=== PATIENT | female | born 1940 | race Caucasian/White ===

== ENCOUNTER → 2018-03-31 12:25 | Outpatient (CLI) | payer MEDICARE, OTHER, SELFPAY ==
--- NOTE | 2018-03-31 | DI.MG.S_ITS ---
UNILATERAL RIGHT DIGITAL DIAGNOSTIC MAMMOGRAM 3D/2D WITH ADDITIONAL VIEWS: 03/31/2018 CLINICAL: Additional evaluation requested from prior study. Comparison is made to exams dated: 03/03/2018 mammogram, 02/04/2017 mammogram, and 01/31/2016 mammogram - [facility]. The tissue of the right breast is heterogeneously dense. This may lower the sensitivity of mammography. Prior mammographic finding is no longer seen in the right breast. There is an 8 mm round low density mass with a circumscribed margin in the right breast at 11 o'clock middle depth. No other significant masses or calcifications are seen in the breast. IMPRESSION: INCOMPLETE: NEEDS ADDITIONAL IMAGING EVALUATION The 8 mm round low density mass in the right breast is indeterminate. An ultrasound is recommended. This exam was interpreted at Station ID: [id number]. NOTE: For mammograms, a report in lay terms will be sent to the patient. Approximately 15% of breast malignancies will not be visualized mammographically. In the management of a palpable breast mass, a negative mammogram must not discourage biopsy of a clinically suspicious lesion. Electronically Signed By: Olivier garcia/maddison:03/31/2018 13:32:16 ACR BI-RADS Category 0: Incomplete 3340F
--- NOTE | 2018-03-31 | DI.US.S_ITS ---
ULTRASOUND OF RIGHT BREAST: 03/31/2018 CLINICAL: Patient returns today to evaluate a focal asymmetry in the right breast. Comparison is made to exams dated: 03/03/2018 mammogram, 02/04/2017 mammogram, 01/31/2016 ultrasound, 01/31/2016 mammogram, and 01/22/2016 mammogram - [facility]. Color flow ultrasound of the right breast was performed. Gloria scale images of the real-time examination were reviewed. There is an benign 8 mm simple cyst in the right breast at 11 o'clock middle depth. This correlates with mammography findings. IMPRESSION: BENIGN There is no sonographic evidence of malignancy. The 8 mm simple cyst in the right breast is benign. A 1 year screening mammogram is recommended. This exam was interpreted at Station ID: [id number]. Electronically Signed By: Olivier garcia/maddison:03/31/2018 13:33:01 letter sent: Normal Exam Ultrasound BI-RADS: 2 Benign
== END ==
PROVIDERS: Visit Provider Family Medicine
DX: R92.8 Other abnormal and inconclusive findings on diagnostic imaging of breast (principal)
CPT/HCPCS: 76642; 77065; G0279

== ENCOUNTER → 2018-04-07 10:11 | Outpatient (CLI) | payer MEDICARE, OTHER, SELFPAY ==
--- NOTE | 2018-04-07 10:59 | DIET.PN ---
Pt referred for mild gastroparesis, requesting information on nutritional management of symptoms. Pt also c/o chronic GERD which actually seemed to be the more concerning issue to her. Assessment Med Dx of gastroparesis made from results of gastric emptying study, which showed 21% gastric contents remaining after 4 hours had elapsed. Med Hx: GERD. Pt reports having an endoscopy in 2015 which showed no pathological changes to esophageal tissue. GI would like to repeat in near future. From record: HLD, basal cell cancer, PSVT. NFPE: Pt appears well nourished, with no report of unintentional weight loss or decreased food intake. Usual diet: Pt follows a varied and nutrient dense diet - reports consuming yogurt, cottage cheese, fruit and vegetables, lean proteins, and whole grains regularly. Diagnosis Altered GI function RT gastroparesis, GERD AEB medical hx, pt report of symptoms including early satiety, need for small meals, belching and increasing fullness as day progresses; results of gastric emptying study. Intervention Pt was originally directed to cut out ALL carbohydrates, all fat, and all fiber by GI, who subsequently recommended chicken when she asked what was left to eat. We were able to provide her with more inclusive dietary recommendations that will allow for a more diverse, balanced diet with greater nutrient density. Recommendations included - mechanically alter fruits & vegetables to break down some fiber prior to consumption, using moist heat or longer cooking methods - cooking proteins with slow, moist cooking methods as opposed to rapid, dry cooking methods - reducing fat intake - liquid fats tend to be easier / quicker to digest than solid fats - eat mostly solid foods in the morning, with transition to predominantly liquid calories as the day progresses, as liquid calories do not appear to be as affected by delayed gastric emptying as do solid foods. Pt has done smoothies in the past but didn't appear too enthusiastic about having a smoothie for dinner when her was eating a regular dinner. She may find relief from previous recommendations and not have to take this somewhat more drastic step to manage symptoms, but wanted to provide it as an option. GERD was not mentioned until well into our discussion. Briefly covered foods that can exacerbate GERD including caffeine, acidic foods, and alcohol. Pt reports having the occasional cocktail with her but often has to give it to him to finish, says, I can do without those easily! Pt has eliminated chocolate and caffeinated coffee; however, discussed fact that even decaf coffee can be quite acidic and so that may also provide relief if it is completely eliminated. Monitoring Pt reports being on a PPI for an extended period of time. This, combined with frequency of Fe deficiency in GP patients in general, suggests that checking pt's Fe (ferritin) levels may be advisable. In addition, B12 and Vit D are also common vitamin / mineral deficiencies in GP and so those two tests are also recommended. Ariana Lopez, buying intern Radha Harrison, MICHELN
== END ==
PROVIDERS: Visit Provider Internal Medicine Gastroenterology
DX: K31.84 Gastroparesis (principal); K21.9 Gastro-esophageal reflux disease without esophagitis
CPT/HCPCS: 97802

== ENCOUNTER → 2019-04-08 11:28 | Outpatient (CLI) | payer MEDICARE, OTHER, SELFPAY ==
--- NOTE | 2019-04-08 | DI.MG.S_ITS ---
BILATERAL DIGITAL SCREENING MAMMOGRAM 3D/2D WITH CAD: 04/08/2019 CLINICAL: Routine screening. Family history of breast cancer. Comparison is made to exams dated: 03/31/2018 mammogram, 03/03/2018 mammogram, 02/04/2017 mammogram, 01/31/2016 mammogram, 01/22/2016 mammogram, and 01/17/2015 mammogram - [facility]. The tissue of both breasts is heterogeneously dense. This may lower the sensitivity of mammography. Current study was also evaluated with a Computer Aided Detection (CAD) system. There is a mole marker on the right breast. There are mole markers on the left breast. No significant masses, calcifications, or other findings are seen in either breast. There has been no significant interval change. IMPRESSION: NEGATIVE There is no mammographic evidence of malignancy. A 1 year screening mammogram is recommended. This exam was interpreted at Station ID: [id number]. NOTE: For mammograms, a report in lay terms will be sent to the patient. Approximately 15% of breast malignancies will not be visualized mammographically. In the management of a palpable breast mass, a negative mammogram must not discourage biopsy of a clinically suspicious lesion. Electronically Signed By: Praveen morgan/maddison:04/08/2019 18:04:59 letter sent: Normal Exam ACR BI-RADS Category 1: Negative 3341F
== END ==
PROVIDERS: PCP Family Medicine; Visit Provider Family Medicine
DX: Z12.31 Encounter for screening mammogram for malignant neoplasm of breast (principal); Z80.3 Family history of malignant neoplasm of breast
CPT/HCPCS: 77063; 77067

== ENCOUNTER → 2019-04-08 13:08 | Outpatient (CLI) | payer MEDICARE, OTHER, SELFPAY ==
--- NOTE | 2019-04-08 13:11 | DI.RAD.S_ITS ---
PROCEDURE: XR CHEST 2V INDICATIONS: Chronic cough TECHNIQUE: 2 views of the chest were acquired. COMPARISON: None. FINDINGS: Surgical changes and devices: None. Lungs and pleura: Lungs are clear. No pleural effusions or pneumothorax. Mediastinum: Mediastinal contours are normal. Heart size is normal. Bones and chest wall: No suspicious bony abnormalities. Soft tissues appear unremarkable. IMPRESSION: No acute disease Dictated by: Torres Saenz M.D. on 04/08/2019 at 13:37 Approved by: Torres Saenz M.D. on 04/08/2019 at 13:37
== END ==
PROVIDERS: PCP Family Medicine; Visit Provider Physician Assistant
DX: R05 Cough (principal)
CPT/HCPCS: 71046

== ENCOUNTER → 2019-11-18 18:48 | Outpatient (CLI) | payer MEDICARE, OTHER, SELFPAY ==
--- NOTE | 2019-11-18 18:53 | DI.MRI.S_ITS ---
PROCEDURE: MR KNEE LT WO CON INDICATIONS: UNSPECIFIED INTERNAL DERANGEMENT OF LEFT KNEE TECHNIQUE: Noncontrast sagittal PD fast spin echo and T2 fast spin echo with fat saturation, sagittal 3-D FLASH with fat saturation; coronal T1 spin echo and PD fast spin echo with fat saturation, and axial PD fast spin echo with fat saturation through the knee. COMPARISON: None. FINDINGS: Image quality: Excellent. Menisci: There is no evidence of focal medial meniscal tear. Complex tear involving posterior horn of lateral meniscus is seen extending to both superior and inferior articulating surfaces. The meniscal root ligaments appear intact. Cruciate ligaments: The anterior and posterior cruciate ligaments appear intact. Medial structures: Low to moderate grade MCL sprain/partial thickness tear is seen. The posterior oblique ligament, semimembranosus tendon insertions, oblique popliteal ligament, and meniscocapsular junction appear intact. Visualized portions of the pes anserinus tendons appear normal. No abnormal bursal fluid. Lateral structures: The lateral collateral ligament, long and short heads of the biceps femoris tendon appear intact. The popliteus tendon appears normal; the popliteofibular ligament appears intact. The posterosuperior and anteroinferior popliteomeniscal fascicles appear intact. The arcuate and fabellofibular ligaments appear intact, on either side of the lateral inferior geniculate artery. Iliotibial band appears normal. Anterior structures: The quadriceps and patellar tendons appear intact. Patellar alignment is normal. No femoral trochlear dysplasia or ventral trochlear prominence. No edema in the infrapatellar fat pad. Bones and cartilage: 3 mm fluid signal area involving weight-bearing portion of anterior medial femoral condyle with mild surrounding edema is seen. Mild to moderate tricompartmental osteoarthritis and chondromalacia is seen more prominent in the medial femoral tibial compartment. Moderate grade chondromalacia along the lateral facet of patella cartilage is also seen. Joint space: There is small to moderate amount of joint fluid. 2.2 x 1.3 x 3.4 cm popliteal cyst is seen. Normal appearing synovial plicae are incidentally noted. IMPRESSION: 1. Complex tear involving posterior horn of lateral meniscus extending to both superior and inferior articulating surfaces. No evidence of focal medial meniscal tear. 2. Cruciate ligaments are intact. 3. Mild to moderate tricompartmental osteoarthritis and chondromalacia. Suggestion of small osteochondral lesion involving weight-bearing portion of medial femoral condyle anterior aspect and measures 3 mm in size. 4. Moderate chondromalacia involving lateral facet of patella cartilage. 5. Small to moderate amount of joint fluid in popliteal cyst as above. No gross intra-articular loose body. Dictated by: Chavo Bajwa M.D. on 11/21/2019 at 11:15 Approved by: Chavo Bajwa M.D. on 11/21/2019 at 11:19
== END ==
PROVIDERS: PCP Family Medicine; Visit Provider Orthopaedic Surgery
DX: S83.272A Complex tear of lateral meniscus, current injury, left knee, initial encounter (principal); S83.412A Sprain of medial collateral ligament of left knee, initial encounter; M17.12 Unilateral primary osteoarthritis, left knee; M22.42 Chondromalacia patellae, left knee; M71.22 Synovial cyst of popliteal space [Baker], left knee
CPT/HCPCS: 73721

== ENCOUNTER → 2020-04-26 10:09 | Outpatient (CLI) | payer MEDICARE, OTHER, SELFPAY ==
--- NOTE | 2020-04-26 10:12 | DI.MG.S_ITS ---
BILATERAL DIGITAL SCREENING MAMMOGRAM 3D/2D WITH CAD: 04/26/2020 CLINICAL: Routine screening. Comparison is made to exams dated: 04/08/2019 mammogram, 03/31/2018 mammogram, 03/03/2018 mammogram, and 02/04/2017 mammogram - [facility]. The tissue of both breasts is heterogeneously dense. This may lower the sensitivity of mammography. Current study was also evaluated with a Computer Aided Detection (CAD) system. There is a mole marker on the right breast. There are mole markers on the left breast. No significant masses, calcifications, or other findings are seen in either breast. There has been no significant interval change. IMPRESSION: NEGATIVE There is no mammographic evidence of malignancy. A 1 year screening mammogram is recommended. This exam was interpreted at Station ID: [id number]. NOTE: For mammograms, a report in lay terms will be sent to the patient. Approximately 15% of breast malignancies will not be visualized mammographically. In the management of a palpable breast mass, a negative mammogram must not discourage biopsy of a clinically suspicious lesion. Electronically Signed By: Linda baker/maddison:04/26/2020 11:43:22 letter sent: Normal Exam ACR BI-RADS Category 1: Negative 3341F
== END ==
PROVIDERS: PCP Family Medicine; Referring Provider Family Medicine; Visit Provider Family Medicine
DX: Z12.31 Encounter for screening mammogram for malignant neoplasm of breast (principal)
CPT/HCPCS: 77063; 77067

== ENCOUNTER 2020-09-17 11:30 | Outpatient (RCR) | payer MEDICARE, OTHER, SELFPAY ==
--- NOTE | 2020-08-24 15:42 | ST.OPIE ---
Visit Care Team Role Provider Type Jenise Hernandez MD Primary Care Provider Non-Staff Specialty: Family Practice Address: [address] [place], [address] Email: Kelby Simpson MD Attending Provider Physician Referring Provider Specialty: Ear, Nose, Throat Address: [address] [place] [address], [address] Email: [email or web address] Speech-Language Pathology Initial Evaluation INCOME TAX ADJUSTER Voice Resonance Evaluation Start: 08/24/20 13:01 Freq: Status: Active Protocol: Document 08/24/20 13:01 LNK (Rec: 08/24/20 14:41 LNK [email or web address]) Voice and Resonance Assessment Session Time Visit Start Time 13:30 Visit Stop Time 14:15 Total Visit Minutes 45 Visit Information Visit Number 1 Plan of Care Dates 08/24/20-11/24/20 Next Note Type Next Note Type Treatment Note Referral Referring Physician Dr. Simpson, ENT Setting Setting Outpatient Care Patient History General Information Pt is a 79 year old female here for evaluation and treatment of hoarseness, throat-claering and voice change following intubation for surgery in July 2020. Pt has a long history of GERD. She is not using PPIs, but rather is on H2 leila only. Pt reports multiple episodes of heartburn daily and hoarseness upon waking up. Dr. Simpson used flexible laryngoscope to evaluate pt's larynx. Dr. Simpson reported all structures to be WNL with normally mobile true vocal folds. Occupational Status Occupation Status Retired Previous Therapy Previous Speech-Language Therapy No - Laryngeal Performance S/Z Ratio S/Z Ratio .51 Functional for Speech Yes Reduced Laryngeal Function Relative to No Respiration Voice Handicap Index Function Subtotal 7 Physical Subtotal 2 Emotional Subtotal 2 Severity Mild (0-30) CAPE-V Overall Severity 31 Roughness 30 Breathiness 9 Strain 5 Pitch 19 Loudness 5 Normal Resonance? Yes Additional Features Glottal High Maximum Phonation Time MPT Norms: Women (15-25) Men (25-35) Loudness (50-60 dB); Speaking Rate: Oral Reading of Sentences (190 Words Per Minute); Oral Reading of Paragraphs (160-170 WPM); Speaking Rate in Conversation (150-250 WPM) Maximum Phonation Time 14.9 Maximum Phonation Time Adequate for Speech Jitter/Shimmer Norms: Jitter (Less than or equal to 1.040% - Frequency) Norms: Shimmer (Less than or equal to 3.810% - Amplitude) Jitter 4.9 Shimmer 7.1 Pitch [place] Pitch [place] WFL Pitch [place] Comments Singing pitch range = 191Hz - 527Hz Breath Support Breath Support Sustained Phonation WFL Comment Breath Support Conversation Comment WFL Speaks on Room Air Yes Voice Pitch Range Norms: Women (100-300 Hz) Men (70-250 Hz) Fundamental Frequency Norms: Women (Mean: 225 Hz; Range: 155-334 Hz) Men ( Mean: 128 Hz; Range: 85-196 Hz) Voice Pitch Normal Voice Loudness Normal Voice Phonatory-based Quality Glottal High Fundamental Frequency 202Hz - 212Hz Paradoxical Vocal Fold Movement No Indications Resonance Nasal Resonance Normal Therapeutic Techniques Other Tactics Decrease amount of glottal high Vocal adduction exercises Decrease throat-clearing Findings Findings Mild Impairment Voice/Resonance Assessment Assessment 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 Pt has been reported to frequently clear her throat. Today during the assessment no obvious throat-clearing was observed. Pt reports history of GERD. Pt reports that she feels she can manage with H2 blockers. Is willing to try PPIs again if necessary. Discussed the relationship between reflux and vocal changes and throat-clearing. Also discussed the possibility of presbylaryngis. Assessment of pt's voice indicated that all parameters were WNL with the exception of Jitter and Shimmer, indicating a higher than normal variability in vocal fold frequency and amplitude during vibration. The Shimmer and Jitter values could be explained by reflux induced irritation or presbylaryngis. This was explained to the pt who indicated that she understood. Voice therapy is recommended targeting vocal adduction exercises as well as continuing to monitor her throat clearing frequency. She noted that Dr. Simpson suggested she swallow instead of clearing her throat. The pt reported that she felt that suggestion to be very helpful and effective. Prognosis Rehabilitation Potential Excellent - Recommendations Treatment Recommended Yes Treatment Frequency/Duration 1x every 2 weeks for 4-6 weeks Ordinary Seaman Goals Pt's voice quality will return to a normal level Pt will report a reduction of throat clearing based on family feedback Patient/Caregiver Education Patient/Family Education Described results of evaluation,Patient Understanding
--- NOTE | 2020-09-17 12:23 | ST.OPTN ---
Visit Care Team Role Provider Type Jenise Hernandez MD Primary Care Provider Non-Staff Address: [facility] [place] [address] [place] [place], [address] Kelby Simpson MD Attending Provider Physician Referring Provider Address: [address] [place] [address], [address] [employer] Treatment Note [employer] Treatment Note Start: 08/24/20 13:01 Freq: Status: Active Protocol: Document 09/17/20 11:25 LNK (Rec: 09/17/20 12:23 LNK [email or web address]) Speech Pathology Treatment Note Session Time Visit Start Time 11:30 Visit Stop Time 12:10 Total Visit Minutes 40 Visit Information Visit Number 2 Plan of Care Dates 08/24/20-11/24/20 Setting Treatment Setting Outpatient Care Visit Type Note Type Treatment Note Next Note Type Next Note Type Discharge Summary General Information General Information Pt is a 79 year old female here for evaluation and treatment of hoarseness, throat-clearing and voice change following intubation for surgery in July 2020. Pt has a long history of GERD. She is not using PPIs, but rather is on H2 leila only. Pt reports multiple episodes of heartburn daily and hoarseness upon waking up. Subjective Identification Type Name Identification Reconciled With Intake Sheet Chief Complaint(s) Voice Rehab Expectation/Goals: Patient Goals Improved vocal quality and decreased throat-clearing Patient Knowledge/Awareness of [employer] Role Excellent in Treatment Objective Short Term Goals Decrease amount of glottal raymond to <20% based on clinical judgment Vocal adduction exercises daily to increase medial compression of vocal folds improving vocal quality per pt report Decrease throat-clearing using swallow instead as reported by pt Snf Goals Pt's voice quality will return to a normal level Pt will report a reduction of throat clearing based on family feedback Treatment Activities Reviewed adduction exercises with pt. She is doing the exercises daily. She feels her voice is the same as it was last session (). She also reported that the frequency of throat-clearing has been reduced. Measurement of jitter and shimmer indicated that there has been improvement in jitter at 1.64. Shimmer, however, has not changed at 7.29. Vocal quality has not changes as well. During a 35 minute session, the pt did not clear her throat. Assessment Patient Response to Treatment Good Impairments Identified Vocal Quality Progress Towards Goals Good Progress Assessment of Overall Progress Unchanged Assessment of Improvement Overall, the pt has shown improvement in the frequency of throat-clearing. In a 35 minute session, she did not clear her throat at all. Additionally, the pt demonstrated improvement in vocal jitter but not in shimmer or overall vocal quality. Pt feels that she is able to maintain the adduction exercises on her own. She will also continue to follow Dr. Simpson' suggestion to swallow instead of clearing her throat. She will contact this clinic or Dr. Simpson, if she needs notes any change in her voice. Reviewed with Patient Home Exercise Program Patient/Caregiver Understanding Excellent Plan Amount of Therapy Recommended No Further Therapy Frequency of Treatment No Further Therapy Provided Patient/Caregiver Instruction Home Exercise Program, Questions/Concerns Therapy Recommendations Discharge to Home Exercise Program
--- NOTE | 2020-09-17 12:26 | ST.OPDS ---
Visit Care Team Role Provider Type Jenise Hernandez MD Primary Care Provider Non-Staff Address: [facility] [place] [address] [place], [address] Kelby Simpson MD Attending Provider Physician Referring Provider Address: [address] [place] [address], [address] [employer] OPERATOR Treatment Note [employer] OPERATOR Treatment Note Start: 08/24/20 13:01 Freq: Status: Active Protocol: Document 09/17/20 11:25 LNK (Rec: 09/17/20 12:23 LNK [email or web address]) Speech Pathology Treatment Note Session Time Visit Start Time 11:30 Visit Stop Time 12:10 Total Visit Minutes 40 Visit Information Visit Number 2 Plan of Care Dates 08/24/20-11/24/20 Setting Treatment Setting Outpatient Care Visit Type Note Type Treatment Note Next Note Type Next Note Type Discharge Summary General Information General Information Pt is a 79 year old female here for evaluation and treatment of hoarseness, throat-clearing and voice change following intubation for surgery in July 2020. Pt has a long history of GERD. She is not using PPIs, but rather is on H2 leila only. Pt reports multiple episodes of heartburn daily and hoarseness upon waking up. Subjective Identification Type Name Identification Reconciled With Intake Sheet Chief Complaint(s) Voice Rehab Expectation/Goals: Patient Goals Improved vocal quality and decreased throat-clearing Patient Knowledge/Awareness of [employer] OPERATOR Role Excellent in Treatment Objective Short Term Goals Decrease amount of glottal raymond to <20% based on clinical judgment Vocal adduction exercises daily to increase medial compression of vocal folds improving vocal quality per pt report Decrease throat-clearing using swallow instead as reported by pt Halfway Goals Pt's voice quality will return to a normal level Pt will report a reduction of throat clearing based on family feedback Treatment Activities Reviewed adduction exercises with pt. She is doing the exercises daily. She feels her voice is the same as it was last session (). She also reported that the frequency of throat-clearing has been reduced. Measurement of jitter and shimmer indicated that there has been improvement in jitter at 1.64. Shimmer, however, has not changed at 7.29. Vocal quality has not changes as well. During a 35 minute session, the pt did not clear her throat. Assessment Patient Response to Treatment Good Impairments Identified Vocal Quality Progress Towards Goals Good Progress Assessment of Overall Progress Unchanged Assessment of Improvement Overall, the pt has shown improvement in the frequency of throat-clearing. In a 35 minute session, she did not clear her throat at all. Additionally, the pt demonstrated improvement in vocal jitter but not in shimmer or overall vocal quality. Pt feels that sh is able to maintain the adduction exercises on her own. She will also continue to follow Dr. Simpson' suggestion to swallow instead of clearing her throat. She will contact this clinic or Dr. Simpson, if she needs notes any change in her voice. Reviewed with Patient Home Exercise Program Patient/Caregiver Understanding Excellent Plan Amount of Therapy Recommended No Further Therapy Frequency of Treatment No Further Therapy Provided Patient/Caregiver Instruction Home Exercise Program, Questions/Concerns Therapy Recommendations Discharge to Home Exercise Program
== END 2020-11-16 09:26 | disposition home or self-care (01) ==
LOC: SP 11:30
PROVIDERS: PCP Family Medicine; Referring Provider Otolaryngology; Visit Provider Otolaryngology
DX: R49.0 Dysphonia (principal); K21.9 Gastro-esophageal reflux disease without esophagitis
CPT/HCPCS: 92507; 92520; 92524

== ENCOUNTER → 2021-04-29 10:34 | Outpatient (CLI) | payer MEDICARE, OTHER, SELFPAY ==
--- NOTE | 2021-04-29 | DI.MG.S_ITS ---
BILATERAL DIGITAL SCREENING MAMMOGRAM 3D/2D WITH CAD: 04/29/2021 CLINICAL: Routine screening. Family history of breast cancer. Comparison is made to exams dated: 04/26/2020 mammogram, 04/08/2019 mammogram, 03/31/2018 mammogram, and 03/03/2018 mammogram - [facility]. The tissue of both breasts is heterogeneously dense. This may lower the sensitivity of mammography. Current study was also evaluated with a Computer Aided Detection (CAD) system. There is a mole marker on the right breast. There are mole markers on the left breast. No significant masses, calcifications, or other findings are seen in either breast. There has been no significant interval change. IMPRESSION: NEGATIVE There is no mammographic evidence of malignancy. A 1 year screening mammogram is recommended. This exam was interpreted at Station ID: [id number]. NOTE: For mammograms, a report in lay terms will be sent to the patient. Approximately 15% of breast malignancies will not be visualized mammographically. In the management of a palpable breast mass, a negative mammogram must not discourage biopsy of a clinically suspicious lesion. Electronically Signed By: Timoteo Sarmiento M.D., jr/maddison:04/29/2021 12:27:07 letter sent: Normal Exam ACR BI-RADS Category 1: Negative 3341F
== END ==
PROVIDERS: PCP Family Medicine; Referring Provider Family Medicine; Visit Provider Family Medicine
DX: Z12.31 Encounter for screening mammogram for malignant neoplasm of breast (principal); Z80.3 Family history of malignant neoplasm of breast
CPT/HCPCS: 77063; 77067

== ENCOUNTER → 2021-11-08 11:32 | Outpatient (CLI) | payer MEDICARE, OTHER, SELFPAY ==
--- NOTE | 2021-11-08 | DI.MRI.S_ITS ---
PROCEDURE: MR KNEE RT WO CON INDICATIONS: PAIN IN BOTH KNEES UNSPECIFIED CHRONICITY TECHNIQUE: Noncontrast sagittal PD fast spin echo and T2 fast spin echo with fat saturation, sagittal 3-D FLASH with fat saturation; coronal T1 spin echo and PD fast spin echo with fat saturation, and axial PD fast spin echo with fat saturation through the knee. COMPARISON: [facility], MR, MR KNEE LT WO CON, 11/18/2019, 19:04. FINDINGS: Image quality: Excellent. Menisci: Oblique tear involving body and posterior horn junction of medial meniscus extending to inferior articulating surface. Oblique tear is also seen involving anterior horn and body of lateral meniscus extending to superior articulating surface. The meniscal root ligaments appear intact. Cruciate ligaments: The anterior and posterior cruciate ligaments appear intact. Medial structures: Low-grade MCL sprain is seen. The posterior oblique ligament, semimembranosus tendon insertions, oblique popliteal ligament, and meniscocapsular junction appear intact. Visualized portions of the pes anserinus tendons appear normal. No abnormal bursal fluid. Lateral structures: The lateral collateral ligament, long and short heads of the biceps femoris tendon appear intact. The popliteus tendon appears normal; the popliteofibular ligament appears intact. The posterosuperior and anteroinferior popliteomeniscal fascicles appear intact. The arcuate and fabellofibular ligaments appear intact, on either side of the lateral inferior geniculate artery. Iliotibial band appears normal. Anterior structures: The quadriceps and patellar tendons appear intact. Patellar alignment is normal. No femoral trochlear dysplasia or ventral trochlear prominence. No edema in the infrapatellar fat pad. Bones and cartilage: No bone marrow contusions or fractures. 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 Joint space: There is small to moderate amount of joint fluid. A small popliteal cyst is seen measures approximately 2 x 1.6 x 3.6 cm in size.. Normal appearing synovial plicae are incidentally noted. IMPRESSION: 1. Oblique tear involving body and posterior horn junction of medial meniscus extending to inferior articulating surface. Oblique tear also seen involving anterior horn and body of lateral meniscus extending to superior articulating surface. 2. Cruciate ligaments are intact. Low-grade MCL sprain. 3. 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 4. Small joint effusion and popliteal cyst as above. No gross loose bodies. Dictated by: Chavo Bajwa M.D. on 11/08/2021 at 12:51 Approved by: Chavo Bajwa M.D. on 11/08/2021 at 12:55
== END ==
PROVIDERS: PCP Family Medicine; Referring Provider Orthopaedic Surgery; Visit Provider Orthopaedic Surgery
DX: S83.241A Other tear of medial meniscus, current injury, right knee, initial encounter (principal); S83.281A Other tear of lateral meniscus, current injury, right knee, initial encounter; S83.411A Sprain of medial collateral ligament of right knee, initial encounter; M17.11 Unilateral primary osteoarthritis, right knee; M22.41 Chondromalacia patellae, right knee; M25.461 Effusion, right knee; M25.561 Pain in right knee; M25.562 Pain in left knee
CPT/HCPCS: 73721

== ENCOUNTER → 2022-05-01 09:57 | Outpatient (CLI) | payer MEDICARE, OTHER, SELFPAY ==
--- NOTE | 2022-05-01 09:59 | DI.MG.S_ITS ---
BILATERAL DIGITAL SCREENING MAMMOGRAM 3D/2D WITH CAD: 05/01/2022 CLINICAL: Routine screening. Family history of breast cancer. Comparison is made to exams dated: 04/29/2021 mammogram, 04/26/2020 mammogram, and 04/08/2019 mammogram - [facility]. The tissue of both breasts is heterogeneously dense. This may lower the sensitivity of mammography. Current study was also evaluated with a Computer Aided Detection (CAD) system. There is a mole marker on the right breast. There are mole markers on the left breast. No significant masses, calcifications, or other findings are seen in either breast. There has been no significant interval change. IMPRESSION: NEGATIVE There is no mammographic evidence of malignancy. A 1 year screening mammogram is recommended. Based on the Tyrer Cuzick model (a risk assessment model) the patient's lifetime risk is 4.1% and her 10 year risk is 0.0%. According to the ACR, ACS, and NCCN guidelines, an annual breast MRI exam along with mammogram is recommended if the patient's lifetime risk is 20% or greater. This exam was interpreted at Station ID: [id number]. NOTE: For mammograms, a report in lay terms will be sent to the patient. Approximately 15% of breast malignancies will not be visualized mammographically. In the management of a palpable breast mass, a negative mammogram must not discourage biopsy of a clinically suspicious lesion. Electronically Signed By: Estuardo rodriguez/maddison:05/01/2022 15:48:22 letter sent: Normal Exam ACR BI-RADS Category 1: Negative 3341F
== END ==
PROVIDERS: PCP Family Medicine; Referring Provider Family Medicine; Visit Provider Family Medicine
DX: Z12.31 Encounter for screening mammogram for malignant neoplasm of breast (principal); Z80.3 Family history of malignant neoplasm of breast
CPT/HCPCS: 77063; 77067

== ENCOUNTER → 2023-02-18 08:32 | Outpatient (CLI) | payer MEDICARE, SELFPAY ==
[2023-02-18 09:57] LABS: BUN Creatinine Ratio 21.4 (6-22); Blood Urea Nitrogen 18 mg/dL (7-17); Calcium 9.4 mg/dL (8.4-10.2); Carbon Dioxide 27 mmol/L (22-32); Chloride 101 mmol/L (98-107); Estimated Glomerular Filt Rate > 60 mL/min (>60); Glucose 108 mg/dL (80-110); HEMOLYSIS < 15 (0-50); Potassium 4.2 mmol/L (3.4-5.1); Sodium 136 mmol/L (137-145)
== END ==
PROVIDERS: PCP Family Medicine; Referring Provider Nurse Practitioner Family; Visit Provider Nurse Practitioner Family
DX: S61.459A Open bite of unspecified hand, initial encounter (principal); W55.01XA Bitten by cat, initial encounter
CPT/HCPCS: 36415; 80048

== ENCOUNTER 2023-02-19 09:48 | Emergency (ER) | payer MEDICARE, SELFPAY ==
[2023-02-19 09:51] VITALS: BP 175/86; PULSE 98; RESP 15; TEMP 36.7; O2SAT 96; BMI 27.4
--- NOTE | 2023-02-19 11:09 | ED_ITS ---
HPI - Animal Bite General Chief Complaint: Animal Bite Stated Complaint: bit by cat on T-4 swelling getting worse Time Seen by Provider: 02/19/23 11:09 Source: patient Mode of arrival: Ambulatory History of Present Illness HPI narrative: This is an 82-year-old female with history of dyslipidemia who presents with complaint of cat bite to the hand. Patient states bite occurred on 02/16/2023 it is her animal she was doing exercises she uses a bar the CT was playing around with her and was feeling risky. She states there was a small scratch or bite she did not actually notice any bleeding until later. Patient states since then she noticed some swelling and redness and warmth. She went to the walk-in clinic was started on Augmentin on the . She states she is had 5 doses total and they marked the area she states it just started to extend beyond yesterday about a cm beyond. Patient denies fevers or chills. She has some discomfort but has full range of motion. Patient states has not extended up her arm or further beyond were noted here in the department. Patient denies any other symptoms. She states she takes ipratropium daily, estradiol topically, Crestor, calcitonin for osteopenia. No known drug allergies. She states her tetanus was updated on the . No tobacco. Related Data Home Medications Medication Instructions Recorded Confirmed [CALCIUM] 500 mg PO QDAY ##0 12/16/11 02/17/23 [MUTIVITAMIN] QDAY ##0 12/16/11 02/17/23 VITAMIN D (Vitamin D3) 1,000 unit PO QDAY ##0 11/16/12 02/17/23 estradiol-norethindrone acet 1 1 tab PO .twice weekly 04/08/19 02/17/23 mg-0.5 mg tablet (Mimvey) ipratropium bromide 17 2 puff inhalation TID 04/08/19 02/17/23 mcg/actuation HFA aerosol inhaler rosuvastatin 10 mg tablet (Crestor) 10 mg PO DAILY 04/08/19 02/17/23 Previous Rx's Medication Instructions Recorded calcitonin (salmon) 200 unit/mL 200 unit intranasal HS ##3 04/05/18 injection solution (Miacalcin) albuterol sulfate 90 mcg/actuation 2 puff inhalation Q4-6H PRN 04/08/19 aerosol inhaler shortness of breath #8.5 grams amoxicillin 875 mg-potassium 1 tab PO BID 14 days #28 tabs 02/17/23 clavulanate 125 mg tablet doxycycline hyclate 100 mg tablet 100 mg PO BID 10 days #20 tabs 02/19/23 Allergies Allergy/AdvReac Type Severity Reaction Status Date / Time adhesive [ADHESIVE] Allergy Intermediate VERY ITCHY Verified 02/19/23 09:56 Review of Systems Review of Systems ROS Unobtainable: All systems reviewed & are unremarkable except as noted in HPI and below Patient History Surgical History Status post breast lumpectomy Family History Father ME (myocardial infarction) Sister B-cell lymphoma, unspecified B-cell lymphoma type, unspecified body region Social History Smoking Status: Never smoker Smoking Status: Never smoker alcohol intake frequency: holidays/special occasions only Substance Use Type: does not use Exam Narrative Exam Narrative: GENERAL: Alert and oriented x three, elderly female in mild distress. HEENT: Head normocephalic, atraumatic, EOMI, pupils reactive, face symmetric, moist mucous membranes NECK: Supple, full range of motion CARDIOVASCULAR: Regular rate and rhythm without murmurs, rubs or gallops. RESPIRATORY: Breath sounds equal bilaterally, no wheezes rales or rhonchi. ABDOMEN: Soft, nontender. Normoactive bowel sounds all 4 quadrants. No guarding or rebound, rigidity, no mass EXTREMITIES: Normal range of motion, no clubbing or edema. Neurovascularly intact NEUROLOGICAL: Cranial nerves II through XII grossly intact. Moving all extremities SKIN: Warm, dry, no petechiae, patient has about a 6 cm area of erythema over the dorsum of the hand on the left. There is a line drawn and extends about a cm beyond on the dorsum of the thumb. There is some mild swelling. Patient has good range of motion. She has normal flexion, extension, adduction and abduction. Cap refills less than 2 seconds in all 5 fingers. 2+ radial pulse. Equal toppiece cutter. Initial Vital Signs Initial Vital Signs: Vital Signs Temperature 98.0 F 02/19/23 09:51 Pulse Rate 98 H 02/19/23 09:51 Respiratory Rate 15 02/19/23 09:51 Blood Pressure 175/86 H 02/19/23 09:51 Pulse Oximetry 96 02/19/23 09:51 Oxygen Delivery Method Room Air 02/19/23 09:51 Course Vital Signs Vital signs: Vital Signs - 8 hr 02/19/23 11:49 Pulse Rate 88 Respiratory Rate 18 Blood Pressure 171/80 H Pulse Oximetry 96 Oxygen Delivery Method Room Air MDM - Animal Bite MDM Narrative Medical decision making narrative: This is an 82-year-old female with cat bite who received her tetanus and started on Augmentin 2 days ago and has had 5 doses total according to the patient. Patient has had a little bit of extension beyond the site. CT is known to her, she does not have any systemic or septic symptoms. There is small amount of extension beyond the line but after 5 doses I would expect to be improving and discussed with patient will change her antibiotic with strict return precautions. Discharge Plan Departure Patient Disposition: Home Clinical Impression: Cat bite, Cellulitis of hand Instructions: DI for Cat Bite Activity Restrictions/Additional Instructions: Please follow-up for recheck in the next 24-48 hours. Please stop the Augmentin and start the doxycycline 1 tablet twice daily. Prescription was printed. Please return for fevers, increasing swelling, redness, streaks running up your arm, increasing pain in your hand inability to flex or extend your fingers or if the infection appears to be spreading or other new or concerning changes. Prescriptions: New doxycycline hyclate 100 mg tablet 100 mg PO BID 10 Days Qty: 20 0RF No Action estradiol-norethindrone acet [Mimvey] 1-0.5 mg tablet 1 tab PO .twice weekly rosuvastatin [Crestor] 10 mg tablet 10 mg PO DAILY ipratropium bromide 17 mcg/actuation HFA aerosol inhaler 2 puff INHALATION TID albuterol sulfate 90 mcg/actuation HFA aerosol inhaler 2 puff INHALATION Q4-6H PRN (Reason: shortness of breath) Qty: 8.5 1RF amoxicillin-pot clavulanate 875-125 mg tablet 1 tab PO BID 14 Days Qty: 28 0RF Rx Instructions: take with food. Take probiotics during therapy [CALCIUM] 500 mg PO QDAY Qty: 0 [MUTIVITAMIN] QDAY Qty: 0 VITAMIN D (Vitamin D3) 1,000 unit PO QDAY Qty: 0 calcitonin (salmon) [Miacalcin] 200 unit/mL solution 200 unit Intranasal HS Qty: 3 0RF Referrals: Jenise Hernandez MD [Primary Care Provider] - Stand Alone Forms: Patient Portal/API
[2023-02-19 11:49] VITALS: BP 171/80; PULSE 88; RESP 18; O2SAT 96
== END 2023-02-19 11:50 | disposition home or self-care (01) ==
PROVIDERS: Emergency Provider Emergency Medicine; PCP Family Medicine
DX: S61.452A Open bite of left hand, initial encounter (principal); W55.01XA Bitten by cat, initial encounter
CPT/HCPCS: 99281

== ENCOUNTER → 2023-05-07 10:51 | Outpatient (CLI) | payer MEDICARE, SELFPAY ==
--- NOTE | 2023-05-07 | DI.MG.S_ITS ---
BILATERAL DIGITAL SCREENING MAMMOGRAM 3D/2D WITH CAD: 05/07/2023 CLINICAL: Routine screening. Family history of breast cancer. Comparison is made to exams dated: 05/01/2022 mammogram, 04/29/2021 mammogram, and 04/26/2020 mammogram - . Both breasts are heterogeneously dense, which may obscure small masses (category c / 51-75% glandular tissue). Current study was also evaluated with a Computer Aided Detection (CAD) system. No significant masses, calcifications, or other findings are seen in either breast. There has been no significant interval change. IMPRESSION: NEGATIVE There is no mammographic evidence of malignancy. A 1 year screening mammogram is recommended. Based on the Tyrer Cuzick model (a risk assessment model) the patient's lifetime risk is 3.3% and her 10 year risk is 0.0%. According to the ACR, ACS, and NCCN guidelines, an annual breast MRI exam along with mammogram is recommended if the patient's lifetime risk is 20% or greater. This exam was interpreted at Station ID: [id number]. NOTE: For mammograms, a report in lay terms will be sent to the patient. Approximately 15% of breast malignancies will not be visualized mammographically. In the management of a palpable breast mass, a negative mammogram must not discourage biopsy of a clinically suspicious lesion. Electronically Signed By: Raza ferrera/maddison:05/07/2023 13:21:31 letter sent: Normal Exam ACR BI-RADS Category 1: Negative 3341F
== END ==
PROVIDERS: PCP Family Medicine; Referring Provider Family Medicine; Visit Provider Family Medicine
DX: Z12.31 Encounter for screening mammogram for malignant neoplasm of breast (principal); Z80.3 Family history of malignant neoplasm of breast
CPT/HCPCS: 77063; 77067

== ENCOUNTER → 2024-05-13 13:14 | Outpatient (CLI) | payer MEDICARE, SELFPAY ==
--- NOTE | 2024-05-13 13:15 | DI.MG.S_ITS ---
BILATERAL DIGITAL SCREENING MAMMOGRAM 3D/2D WITH CAD: 05/13/2024 CLINICAL: Routine screening. Family history of breast cancer. Comparison is made to exams dated: 05/07/2023 mammogram, 05/01/2022 mammogram, and 04/29/2021 mammogram - [facility]. Both breasts are heterogeneously dense, which may obscure small masses (category c / 51-75% glandular tissue). Current study was also evaluated with a Computer Aided Detection (CAD) system. No significant masses, calcifications, or other findings are seen in either breast. There has been no significant interval change. IMPRESSION: NEGATIVE There is no mammographic evidence of malignancy. A 1 year screening mammogram is recommended. Based on the Tyrer Cuzick model (a risk assessment model) the patient's lifetime risk is 1.5% and her 10 year risk is 0.0%. According to the ACR, ACS, and NCCN guidelines, an annual breast MRI exam along with mammogram is recommended if the patient's lifetime risk is 20% or greater. This exam was interpreted at Station ID: [id number]. NOTE: For mammograms, a report in lay terms will be sent to the patient. Approximately 15% of breast malignancies will not be visualized mammographically. In the management of a palpable breast mass, a negative mammogram must not discourage biopsy of a clinically suspicious lesion. Electronically Signed By: Rod valverde/maddison:05/13/2024 15:15:40 letter sent: Normal Exam ACR BI-RADS Category 1: Negative 3341F
== END ==
LOC: MAMMO 13:14
PROVIDERS: PCP Family Medicine; Referring Provider Family Medicine; Visit Provider Family Medicine
DX: Z12.31 Encounter for screening mammogram for malignant neoplasm of breast (principal); Z80.3 Family history of malignant neoplasm of breast
CPT/HCPCS: 77063; 77067

== ENCOUNTER → 2025-03-19 10:08 | Outpatient (CLI) | payer MEDICARE, SELFPAY ==
[2025-03-19 10:52] LABS: COVID-19 CEPHEID 4-PLEX PCR Negative (Negative); Influenza A - CEPHEID Flu A NEGATIVE (NEGATIVE); Influenza B - CEPHEID Flu B NEGATIVE (NEGATIVE); Respiratory Syncytial Virus Negative (Negative)
== END ==
LOC: LAB 10:08
PROVIDERS: Family Provider Family Medicine; PCP Family Medicine; Visit Provider Nurse Practitioner Family
DX: R05.9 Cough, unspecified (principal); R06.2 Wheezing
CPT/HCPCS: 0241U

== ENCOUNTER → 2025-03-19 10:26 | Outpatient (CLI) | payer MEDICARE, SELFPAY ==
--- NOTE | 2025-03-19 10:28 | DI.RAD.S_ITS ---
PROCEDURE: XR CHEST 2V INDICATIONS: Cough TECHNIQUE: 2 views of the chest were acquired. COMPARISON: [facility], CR, XR CHEST 2V, 04/08/2019, 13:11. FINDINGS: Surgical changes and devices: None. Lungs and pleura: Mild bibasilar reticulated opacification without a focal consolidation. No pleural effusions or pneumothorax. Mediastinum: Mediastinal contours are normal. Heart size is normal. Bones and chest wall: Diffuse osseous demineralization.. Soft tissues appear unremarkable. IMPRESSION: Emphysema. Otherwise, no acute cardiothoracic process. Dictated by: Zion Nguyen M.D. on 03/19/2025 at 17:19 Approved by: Zion Nguyen M.D. on 03/19/2025 at 17:20
== END ==
LOC: RAD 10:27
PROVIDERS: Family Provider Family Medicine; PCP Family Medicine; Referring Provider Nurse Practitioner Family; Visit Provider Nurse Practitioner Family
DX: R05.9 Cough, unspecified (principal); J43.9 Emphysema, unspecified; R06.2 Wheezing
CPT/HCPCS: 0241U; 71046

== ENCOUNTER 2025-03-21 09:45 | Outpatient (RCR) | payer MEDICARE, SELFPAY ==
--- NOTE | 2025-02-06 17:45 | PT.OIE ---
Current Diagnoses Unspecified internal derangement of left knee (02/06/25) Complex tear of medial meniscus, current injury, right knee, subsequent encounter (02/06/25) Past Surgical History (Last Reviewed 02/19/23 @ 11:44 by Valery Becerra DO) Status post breast lumpectomy Visit Care Team Role Provider Type Jenise Hernandez MD Family Provider Non-Staff Primary Care Provider Specialty: Family Practice Address: [address] , [place], [address] Email: Jensen Donald MD Attending Provider Non-Staff Referring Provider Specialty: Orthopedic Surgery Address: [address], [place], [address] Email: Physical Therapy Initial Evaluation PT-OP-A Visit Information Start: 02/06/25 07:36 Freq: Status: Active Protocol: Document 02/06/25 13:02 [facility] (Rec: 02/06/25 13:47 [facility] [id number]) Out-Patient Physical Therapy Visit Information Visit Information Visit Type Initial Evaluation Visit Start Time 13:03 Visit Stop Time 13:45 Visit Number 1 (11/11) Number of SOCIAL INSURANCE SPECIALIST Visits 0 PT-OP-B Current Condition Start: 02/06/25 07:36 Freq: Status: Active Protocol: Document 02/06/25 13:02 [facility] (Rec: 02/06/25 13:47 [facility] [id number]) Current Condition History of Current Condition Onset Date years Current Complaints B knee pain History of Current Condition Pt reports she is has never done PT for knees and had a meniscus repair R 01/01/22. Had a cortizone shot about 4 months ago and that has been doing well after MRI showed another meniscus repair . Had total hysterectomy w/urethral mesh 07/04/20. Has had knee pain for several years that got worse. So far the shot is working well. Does have some back pain L>R side that is on/ off. With some voltarin recently, it has gotten better . Right now it is a 2/10 but when it comes, it is pretty debilitating. Does work with massage therapist as needed. Pt has noticed L knee is worse right now, but is up and down with specific activities like going up stairs or getting up off the floor. Also has L foot arthritis and vix vapor rub helps. Walks [place] park. Has steps all around the house but does have hand rails. Prior Treatments and Tests IMPRESSION: 1. Oblique tear involving body and posterior horn junction of medial meniscus extending to inferior articulating surface. Oblique tear also seen involving anterior horn and body of lateral meniscus extending to superior articulating surface. 2. Cruciate ligaments are intact. Low-grade MCL sprain. 3. 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 4. Small joint effusion and popliteal cyst as above. No gross loose bodies. Treatment Goals Patient/Caregiver Goals Be able to get up from the floor a little easier, be able to get up the stairs easier, get knee stronger, improve balance PT-OP-C Subjective Start: 02/06/25 07:36 Freq: Status: Active Protocol: Document 02/06/25 13:02 [facility]06[id number] Patient Questionnaires Lower Extremity Functional Scale LEFS Score 56 OP-PT Pain Assessment Location B knees Pain Location Details ant med and lat Description Aching,Sharp Frequency Intermittent Pain Aggravating Factors Stair Climbing Other Pain Aggravating Factors upstairs, squat, off the floor PT-OP-D Balance Start: 02/06/25 07:36 Freq: Status: Active Protocol: Document 02/06/25 13:02 [facility] (Rec: 02/06/25 13:47 [id number] Balance Tests Single Limb Standing Single Limb- Right can lift leg Single Limb- Left 1 sec PT-OP-G Mobility & Gait Start: 02/06/25 07:36 Freq: Status: Active Protocol: Document 02/06/25 13:02 [facility] (Rec: 02/06/25 13:47 [facility] [id number]) OP Gait Assessment Comments Gait Comments dec push off , slight bent fwd , dec RLE stance time, add R>L LE PT-OP-J Posture/Palpation/Skin Start: 02/06/25 07:36 Freq: Status: Active Protocol: Document 02/06/25 13:02 [facility] (Rec: 02/06/25 13:47 [id number] Posture Evaluation Comments Posture Comments R> L pronation, R>L femoral and tibial IR, R iliac crest higher, equal greater trocanters, significant inc kyphosis PT-OP-K Range of Motion Start: 02/06/25 07:36 Freq: Status: Active Protocol: Document 02/06/25 13:02 [facility] (Rec: 02/06/25 13:47 [facility] [id number]) Knee Goniometric Range of Motion Knee Right Flexion Active (degrees) 133 Extension Active (degrees) 6 Left Flexion Active (degrees) 132 Extension Active (degrees) 4 PT-OP-L Special Tests Start: 02/06/25 07:36 Freq: Status: Active Protocol: Document 02/06/25 13:02 [facility] (Rec: 02/06/25 13:47 [facility] [id number]) Special Tests Knee Special Tests SLR Test Results 55 L, 54 R Other Special Tests Special Tests Patellar reflex 2+; L 0; achilles B 0 PT-OP-M Strength Start: 02/06/25 07:36 Freq: Status: Active Protocol: Document 02/06/25 13:02 [facility] (Rec: 02/06/25 13:47 [id number] Hip Strength Hip Manual Muscle Testing Right Flexion (L2) 3+ Fair+ Extension (S1) 3+ Fair+ Abduction 3+ Fair+ Adduction 4- Good- External Rotation 3+ Fair+ Internal Rotation 4 Good Left Flexion (L2) 3+ Fair+ Extension (S1) 3+ Fair+ Abduction 3+ Fair+ Adduction 3+ Fair+ External Rotation 3+ Fair+ Internal Rotation 4 Good Knee Strength Knee Manual Muscle Testing Right Flexion (S2) 4 Good Extension (L3) 4- Good- Left Flexion (S2) 5 Normal Extension (L3) 3+ Fair+ Ankle/Foot Strength Ankle and Foot Manual Muscle Testing Right Dorsiflexion (L4) 4+ Good+ Plantarflexion (S1) 4+ Good+ Comments 18 heel raises,dec eccentric control and difficulty keeping knee straight Left Dorsiflexion (L4) 4+ Good+ Plantarflexion (S1) 3+ Fair+ Comments unable to do more than 2 heel raises d/t foot pain PT-OP-T Assessment and Plan Start: 02/06/25 07:36 Freq: Status: Active Protocol: Document 02/06/25 13:02 [facility] (Rec: 02/06/25 13:47 [facility] [id number]) Physical Therapy Assessment Rehab Potential Rehabilitation Potential Good Evaluation Complexity Number of Personal Factors/Comorbidities 3 or More Number of Body Systems Impaired 4 or More Clinical Presentation at Evaluation Evolving Impairments Impairments Activity Tolerance,Balance, Functional Activities, Functional Mobility,Gait,Pain, Posture,ROM,Soft Tissue Mobility,Strength,Transfers Goals strength Short Term Goal (STG) Pt will be indep w/HEP for strength and mobility STG Duration 03/06 Truck Dispatcher Goal (LTG) Pt will score at least 4+/5 on all BLE MMT to show improved stability to allow greater ease w/daily activities LTG Duration 05/01 activities Short Term Goal (STG) Pt will be able to navigate stairs w/o inc pain STG Duration 03/11 Half-Way Goal (LTG) Pt will be able to get up/down from the ground LTG Duration 05/01 balance Short Term Goal (STG) Pt will be able to do SLS for at least 4 sec B STG Duration 03/16 Half-Way Goal (LTG) Pt will be able to do SLS for at least 8 sec B LTG Duration 05/01 Assessment Summary Assessment Pt presents with B Knee pain that is chronic in nature, but did have recent worsening causing her to get cortizone injection on R knee which has helped. She is very weak in LEs and does have dec balance which may be related to her deficits including her dec ability to go up stairs and get up/down from the ground w/ o inc pain. She is very active and wants to have knowledge to strengthen her LEs in order to prevent further worsening of her pain and improve her ease w/daily activities including stairs and ability to get up/down from the ground . She is unable to do SLS B >1 sec and would benefit from balance work to improve stability. Pt would benefit from skilled PT to improve mobility and strength. Physical Therapy Plan Frequency and Duration Frequency of Treatment 2x/wk for 5wk> 1x/wk Duration of treatment (weeks) 12 Plan of Care Start Date 02/06/25 Plan of Care End Date 05/01/25 Therapeutic Interventions Therapeutic Interventions Balance Training,Gait Training ,Home Exercise Program,Joint Mobilizations,Manual Therapy, Neuromuscular Re-education, Patient/Caregiver Education, Self-Care/Home Management,Soft Tissue Mobilization,Taping, Therapeutic Activities, Therapeutic Exercises Modalities Cold Pack/Ice Massage,Electric Stimulation,Hot Packs Next Visit Focus/Plan Next Note Type Treatment Note Next Visit Plan check pt floor exercises, sit to stands, small step ups, leg press, bridge, sidesteps manual to hips and LE STm
--- NOTE | 2025-03-09 14:50 | PT.OTN ---
Current Diagnoses Unspecified internal derangement of left knee (03/09/25) Complex tear of medial meniscus, current injury, right knee, subsequent encounter (03/09/25) Physical Therapy Treatment Note PT-OP-A Visit Information Start: 02/06/25 07:36 Freq: Status: Active Protocol: Document 03/09/25 12:59 AB (Rec: 03/09/25 14:39 AB Laptop) Out-Patient Physical Therapy Visit Information Visit Information Visit Type Treatment Note Visit Start Time 13:47 Visit Stop Time 14:33 Visit Number 2 Number of CIGAR MAKING MACHINE OPERATOR Visits 1 PT-OP-B Current Condition Start: 02/06/25 07:36 Freq: Status: Active Protocol: Document 02/06/25 13:02 [facility] (Rec: 02/06/25 13:47 [facility] [id number]) Current Condition History of Current Condition Onset Date years Current Complaints B knee pain History of Current Condition Pt reports she is has never done PT for knees and had a meniscus repair R 01/01/22. Had a cortizone shot about 4 months ago and that has been doing well after MRI showed another meniscus repair . Had total hysterectomy w/urethral mesh 07/04/20. Has had knee pain for several years that got worse. So far the shot is working well. Does have some back pain L>R side that is on/ off. With some voltarin recently, it has gotten better . Right now it is a 2/10 but when it comes, it is pretty debilitating. Does work with massage therapist as needed. Pt has noticed L knee is worse right now, but is up and down with specific activities like going up stairs or getting up off the floor. Also has L foot arthritis and vix vapor rub helps. Wal[place]. Has steps all around the house but does have hand rails. Prior Treatments and Tests IMPRESSION: 1. Oblique tear involving body and posterior horn junction of medial meniscus extending to inferior articulating surface. Oblique tear also seen involving anterior horn and body of lateral meniscus extending to superior articulating surface. 2. Cruciate ligaments are intact. Low-grade MCL sprain. 3. 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 4. Small joint effusion and popliteal cyst as above. No gross loose bodies. Treatment Goals Patient/Caregiver Goals Be able to get up from the floor a little easier, be able to get up the stairs easier, get knee stronger, improve balance PT-OP-C Subjective Start: 02/06/25 07:36 Freq: Status: Active Protocol: Document 03/09/25 12:59 AB (Rec: 03/09/25 14:39 AB Laptop) OP-PT Subjective Patient Comments Patient Comments Karley reports having no pain start of session ambulating into session without device. Patient reports stairs have been painful so they put a rail, in but hasn't tried it yet. PT-OP-D Balance Start: 02/06/25 07:36 Freq: Status: Active Protocol: Document 02/06/25 13:02 [facility] (Rec: 02/06/25 13:47 [id number] Balance Tests Single Limb Standing Single Limb- Right can lift leg Single Limb- Left 1 sec PT-OP-G Mobility & Gait Start: 02/06/25 07:36 Freq: Status: Active Protocol: Document 02/06/25 13:02 [facility] (Rec: 02/06/25 13:47 [id number] OP Gait Assessment Comments Gait Comments dec push off , slight bent fwd , dec RLE stance time, add R>L LE PT-OP-J Posture/Palpation/Skin Start: 02/06/25 07:36 Freq: Status: Active Protocol: Document 02/06/25 13:02 [facility] (Rec: 02/06/25 13:47 [facility] [id number]) Posture Evaluation Comments Posture Comments R> L pronation, R>L femoral and tibial IR, R iliac crest higher, equal greater trocanters, significant inc kyphosis PT-OP-K Range of Motion Start: 02/06/25 07:36 Freq: Status: Active Protocol: Document 02/06/25 13:02 [facility] (Rec: 02/06/25 13:47 [facility] [id number]) Knee Goniometric Range of Motion Knee Right Flexion Active (degrees) 133 Extension Active (degrees) 6 Left Flexion Active (degrees) 132 Extension Active (degrees) 4 PT-OP-L Special Tests Start: 02/06/25 07:36 Freq: Status: Active Protocol: Document 02/06/25 13:02 [facility] (Rec: 02/06/25 13:47 [facility] [id number]) Special Tests Knee Special Tests SLR Test Results 55 L, 54 R Other Special Tests Special Tests Patellar reflex 2+; L 0; achilles B 0 PT-OP-M Strength Start: 02/06/25 07:36 Freq: Status: Active Protocol: Document 02/06/25 13:02 [facility] (Rec: 02/06/25 13:47 [facility] [id number]) Hip Strength Hip Manual Muscle Testing Right Flexion (L2) 3+ Fair+ Extension (S1) 3+ Fair+ Abduction 3+ Fair+ Adduction 4- Good- External Rotation 3+ Fair+ Internal Rotation 4 Good Left Flexion (L2) 3+ Fair+ Extension (S1) 3+ Fair+ Abduction 3+ Fair+ Adduction 3+ Fair+ External Rotation 3+ Fair+ Internal Rotation 4 Good Knee Strength Knee Manual Muscle Testing Right Flexion (S2) 4 Good Extension (L3) 4- Good- Left Flexion (S2) 5 Normal Extension (L3) 3+ Fair+ Ankle/Foot Strength Ankle and Foot Manual Muscle Testing Right Dorsiflexion (L4) 4+ Good+ Plantarflexion (S1) 4+ Good+ Comments 18 heel raises,dec eccentric control and difficulty keeping knee straight Left Dorsiflexion (L4) 4+ Good+ Plantarflexion (S1) 3+ Fair+ Comments unable to do more than 2 heel raises d/t foot pain PT-OP-Q Treatments Start: 02/06/25 07:36 Freq: Status: Active Protocol: Document 03/09/25 12:59 AB (Rec: 03/09/25 14:39 AB Laptop) Gym Equipment Shuttle Recovery bilateral Details 62# Reps/Time X 15 single leg Details 37 # Reps/Time 15 each LE Therapeutic Exercises Supine Exercises bridge Supine Exercise Name X13 high bridge x13 low bridge Comments monitored for pain SLR Reps/Minutes X 15 each LE Comments VC to quad set and hold knee straight on each rep and, to height of lift Prone Exercises hip extension Prone Exercise Name per patient from chiropractor Reps/Minutes X 5 without pillow then X 10 with 2 pillows under core Comments Patient ed rationale of pillow use Sidelying Exercises clamshell Sidelying Exercise Name initiates X 4 without band, band added, VC for trunk position Resistance Level one band to HEP Reps/Minutes X 15 each LE Sitting Exercises seated hip abd with band Sitting Exercise Name HEP Side bilateral Resistance Level 3 band Reps/Minutes One min X 1 Comments SLS inc from 1 sec each LE without UE use to 3 sec Standing Exercises sit to stand Standing Exercise Name HEP Reps/Minutes X5 and X 4 Comments Pt ed mech of sit to stand and self tactile cues for hip hinge Therapeutic Activity Therapeutic Activity floor recovery Comments visual demonstration of floor to chair to standing from chair, and to use stronger LE when in 1/2 kneel to raise Gait Training Gait Activity 6 inch stairs with one rail Description 4 steps X 4 Comments verbal and visual cues for less quad dom pattern, repeated. reports no change PT-OP-T Assessment and Plan Start: 02/06/25 07:36 Freq: Status: Active Protocol: Document 03/09/25 12:59 AB (Rec: 03/09/25 14:39 AB Laptop) Physical Therapy Plan Next Visit Focus/Plan Next Note Type Treatment Note Next Visit Plan small step ups, leg press, sidesteps manual to hips and LE STm Patient request to use the Shuttle Recovery/Leg press every session she is here. End of session Patient comments she usually uses the bike when she is here.
--- NOTE | 2025-03-14 12:23 | PT.OTN ---
Current Diagnoses Unspecified internal derangement of left knee (03/14/25) Complex tear of medial meniscus, current injury, right knee, subsequent encounter (03/14/25) Physical Therapy Treatment Note PT-OP-A Visit Information Start: 02/06/25 07:36 Freq: Status: Active Protocol: Document 03/14/25 11:30 [facility] (Rec: 03/14/25 12:00 [facility] [id number]) Out-Patient Physical Therapy Visit Information Visit Information Visit Type Progress Note Visit Start Time 11:35 Visit Stop Time 12:15 Visit Number 3 Number of SWIMMING POOL CLEANER Visits 0 PT-OP-B Current Condition Start: 02/06/25 07:36 Freq: Status: Active Protocol: Document 02/06/25 13:02 [facility] (Rec: 02/06/25 13:47 [facility] [id number]) Current Condition History of Current Condition Onset Date years Current Complaints B knee pain History of Current Condition Pt reports she is has never done PT for knees and had a meniscus repair R 01/01/22. Had a cortizone shot about 4 months ago and that has been doing well after MRI showed another meniscus repair . Had total hysterectomy w/urethral mesh 07/04/20. Has had knee pain for several years that got worse. So far the shot is working well. Does have some back pain L>R side that is on/ off. With some voltarin recently, it has gotten better . Right now it is a 2/10 but when it comes, it is pretty debilitating. Does work with massage therapist as needed. Pt has noticed L knee is worse right now, but is up and down with specific activities like going up stairs or getting up off the floor. Also has L foot arthritis and vix vapor rub helps. Wal[place]. Has steps all around the house but does have hand rails. Prior Treatments and Tests IMPRESSION: 1. Oblique tear involving body and posterior horn junction of medial meniscus extending to inferior articulating surface. Oblique tear also seen involving anterior horn and body of lateral meniscus extending to superior articulating surface. 2. Cruciate ligaments are intact. Low-grade MCL sprain. 3. 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 4. Small joint effusion and popliteal cyst as above. No gross loose bodies. Treatment Goals Patient/Caregiver Goals Be able to get up from the floor a little easier, be able to get up the stairs easier, get knee stronger, improve balance PT-OP-C Subjective Start: 02/06/25 07:36 Freq: Status: Active Protocol: Document 03/14/25 11:30 [facility] (Rec: 03/14/25 12:00 [id number]-PT Subjective Patient Comments Patient Comments Pt reports knee has been feeling okay overall. Has spent a lot of time in bed for past 2.5 weeks d/t having a cold. She went to [place] [employer] and did it after last session . She stopped more d/t breathing when walking. Stairs are the same and still painful and that is the main thing that hurts the knee. PT-OP-D Balance Start: 02/06/25 07:36 Freq: Status: Active Protocol: Document 03/14/25 11:30 [facility] (Rec: 03/14/25 12:00 [id number] Balance Tests Single Limb Standing Single Limb- Right 9 sec Single Limb- Left 4 sec PT-OP-G Mobility & Gait Start: 02/06/25 07:36 Freq: Status: Active Protocol: Document 02/06/25 13:02 [facility] (Rec: 02/06/25 13:47 [id number] OP Gait Assessment Comments Gait Comments dec push off , slight bent fwd , dec RLE stance time, add R>L LE PT-OP-J Posture/Palpation/Skin Start: 02/06/25 07:36 Freq: Status: Active Protocol: Document 02/06/25 13:02 [facility] (Rec: 02/06/25 13:47 [facility] [id number]) Posture Evaluation Comments Posture Comments R> L pronation, R>L femoral and tibial IR, R iliac crest higher, equal greater trocanters, significant inc kyphosis PT-OP-K Range of Motion Start: 02/06/25 07:36 Freq: Status: Active Protocol: Document 02/06/25 13:02 [facility] (Rec: 02/06/25 13:47 [facility] [id number]) Knee Goniometric Range of Motion Knee Right Flexion Active (degrees) 133 Extension Active (degrees) 6 Left Flexion Active (degrees) 132 Extension Active (degrees) 4 PT-OP-L Special Tests Start: 02/06/25 07:36 Freq: Status: Active Protocol: Document 02/06/25 13:02 [facility] (Rec: 02/06/25 13:47 [facility] [id number]) Special Tests Knee Special Tests SLR Test Results 55 L, 54 R Other Special Tests Special Tests Patellar reflex 2+; L 0; achilles B 0 PT-OP-M Strength Start: 02/06/25 07:36 Freq: Status: Active Protocol: Document 03/14/25 11:30 [facility] (Rec: 03/14/25 12:06 [facility] [id number]) Hip Strength Hip Manual Muscle Testing Right Flexion (L2) 3+ Fair+ Extension (S1) 3+ Fair+ Abduction 4- Good- Adduction 4 Good External Rotation 4 Good Internal Rotation 5 Normal Left Flexion (L2) 3+ Fair+ Extension (S1) 3+ Fair+ Abduction 4 Good Adduction 4- Good- External Rotation 4- Good- Internal Rotation 5 Normal Knee Strength Knee Manual Muscle Testing Right Flexion (S2) 4+ Good+ Extension (L3) 4+ Good+ Left Flexion (S2) 4 Good Extension (L3) 4- Good- Ankle/Foot Strength Ankle and Foot Manual Muscle Testing Right Dorsiflexion (L4) 5 Normal Left Dorsiflexion (L4) 4+ Good+ PT-OP-Q Treatments Start: 02/06/25 07:36 Freq: Status: Active Protocol: Document 03/14/25 11:30 [facility] (Rec: 03/14/25 12:00 [facility] [id number]) Cardio Equipment Bicycle (Upright) Duration (Minutes) 6 Resistance 7 Seat Position 6 Gym Equipment Shuttle Recovery bilateral Details 62# Reps/Time X 15 single leg Details 37 # Reps/Time 15 each LE Therapeutic Exercises Supine Exercises bridge Supine Exercise Name SL Side bilateral Reps/Minutes 15 SLR Reps/Minutes x10 ea Comments cues core and quad set first Sidelying Exercises clamshell Side bilateral Resistance Level one band to HEP Reps/Minutes 15 ea Comments cues avoid rolling Sitting Exercises seated hip abd with band Sitting Exercise Name HEP Side bilateral Resistance Level 3 band Reps/Minutes One min X 1, 10 reps Standing Exercises step up Standing Exercise Name 1. fwd 2. lat Side bilateral Equipment Used 4 in step w/rail Reps/Minutes 12 ea Comments cues slow on decent sit to stand Standing Exercise Name HEP Equipment Used L1 band at knees 2nd set Reps/Minutes 2x10 Comments max cues for knees Manual Therapy Treatment Consent Patient gave verbal consent for manual Yes treatment Joint Mobilizations patellofemoral Joint sup, inf Body Position Supine PT-OP-T Assessment and Plan Start: 02/06/25 07:36 Freq: Status: Active Protocol: Document 03/14/25 11:30 [facility] (Rec: 03/14/25 12:00 [facility] [id number]) Physical Therapy Assessment Goals strength Short Term Goal (STG) Pt will be indep w/HEP for strength and mobility 03/14-has started PT exercises STG Duration 03/06 Assisted Goal (LTG) Pt will score at least 4+/5 on all BLE MMT to show improved stability to allow greater ease w/daily activities LTG Duration 05/01 activities Short Term Goal (STG) Pt will be able to navigate stairs w/o inc pain 03/14-no change STG Duration 03/11 Assisted Goal (LTG) Pt will be able to get up/down from the ground 03/14-painful in shoulders d/t having pull herself up LTG Duration 05/01 balance Short Term Goal (STG) Pt will be able to do SLS for at least 4 sec B STG Duration achieved 03/14 Employment Security Officer Goal (LTG) Pt will be able to do SLS for at least 8 sec B LTG Duration 05/01 Assessment Summary Assessment Pt required cues for knee position w/SLR, and step ups along w/sit to stands today. Improves w/cues. cues needed for clamshell performance also to avoid rolling. Able to progress to further difficulty w/bridging exercise. She is making progress with exercises with improved balance and strength. Cont to have pain w/ stairs and difficulty w/floor transfers. Physical Therapy Plan Frequency and Duration Frequency of Treatment 2x/wk for 5wk> 1x/wk Duration of treatment (weeks) 12 Plan of Care Start Date 02/06/25 Plan of Care End Date 05/01/25 Next Visit Focus/Plan Next Note Type Treatment Note Next Visit Plan get pt HEP for home as will complete PT 03/23; work on floor transfer ability
--- NOTE | 2025-03-16 10:37 | PT.OTN ---
Current Diagnoses Unspecified internal derangement of left knee (03/16/25) Complex tear of medial meniscus, current injury, right knee, subsequent encounter (03/16/25) Physical Therapy Treatment Note PT-OP-A Visit Information Start: 02/06/25 07:36 Freq: Status: Active Protocol: Document 03/16/25 08:52 AB (Rec: 03/16/25 10:37 AB Laptop) Out-Patient Physical Therapy Visit Information Visit Information Visit Type Treatment Note Visit Start Time 09:46 Visit Stop Time 10:32 Visit Number 4 (PN by 04/14/2025) Number of YACHT CAPTAIN Visits 1 PT-OP-B Current Condition Start: 02/06/25 07:36 Freq: Status: Active Protocol: Document 02/06/25 13:02 [facility] (Rec: 02/06/25 13:47 [facility] [id number]) Current Condition History of Current Condition Onset Date years Current Complaints B knee pain History of Current Condition Pt reports she is has never done PT for knees and had a meniscus repair R 01/01/22. Had a cortizone shot about 4 months ago and that has been doing well after MRI showed another meniscus repair . Had total hysterectomy w/urethral mesh 07/04/20. Has had knee pain for several years that got worse. So far the shot is working well. Does have some back pain L>R side that is on/ off. With some voltarin recently, it has gotten better . Right now it is a 2/10 but when it comes, it is pretty debilitating. Does work with massage therapist as needed. Pt has noticed L knee is worse right now, but is up and down with specific activities like going up stairs or getting up off the floor. Also has L foot arthritis and vix vapor rub helps. Walks [place]. Has steps all around the house but does have hand rails. Prior Treatments and Tests IMPRESSION: 1. Oblique tear involving body and posterior horn junction of medial meniscus extending to inferior articulating surface. Oblique tear also seen involving anterior horn and body of lateral meniscus extending to superior articulating surface. 2. Cruciate ligaments are intact. Low-grade MCL sprain. 3. 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 4. Small joint effusion and popliteal cyst as above. No gross loose bodies. Treatment Goals Patient/Caregiver Goals Be able to get up from the floor a little easier, be able to get up the stairs easier, get knee stronger, improve balance PT-OP-C Subjective Start: 02/06/25 07:36 Freq: Status: Active Protocol: Document 03/16/25 08:52 AB (Rec: 03/16/25 10:37 AB Laptop) OP-PT Subjective Patient Comments Patient Comments Patient reports she is the same, the exercises are going OK, likes the bands and hip hinge instruction. Patient reports stairs are the same, patient reports still getting over cold. PT-OP-D Balance Start: 02/06/25 07:36 Freq: Status: Active Protocol: Document 03/14/25 11:30 [facility] (Rec: 03/14/25 12:00 [place] [id number]) Balance Tests Single Limb Standing Single Limb- Right 9 sec Single Limb- Left 4 sec PT-OP-G Mobility & Gait Start: 02/06/25 07:36 Freq: Status: Active Protocol: Document 02/06/25 13:02 [facility] (Rec: 02/06/25 13:47 [id number] OP Gait Assessment Comments Gait Comments dec push off , slight bent fwd , dec RLE stance time, add R>L LE PT-OP-J Posture/Palpation/Skin Start: 02/06/25 07:36 Freq: Status: Active Protocol: Document 02/06/25 13:02 [facility] (Rec: 02/06/25 13:47 [id number]) Posture Evaluation Comments Posture Comments R> L pronation, R>L femoral and tibial IR, R iliac crest higher, equal greater trocanters, significant inc kyphosis PT-OP-K Range of Motion Start: 02/06/25 07:36 Freq: Status: Active Protocol: Document 02/06/25 13:02 [facility] (Rec: 02/06/25 13:47 [facility] [id number]) Knee Goniometric Range of Motion Knee Right Flexion Active (degrees) 133 Extension Active (degrees) 6 Left Flexion Active (degrees) 132 Extension Active (degrees) 4 PT-OP-L Special Tests Start: 02/06/25 07:36 Freq: Status: Active Protocol: Document 02/06/25 13:02 [facility] (Rec: 02/06/25 13:47 [id number]) Special Tests Knee Special Tests SLR Test Results 55 L, 54 R Other Special Tests Special Tests Patellar reflex 2+; L 0; achilles B 0 PT-OP-M Strength Start: 02/06/25 07:36 Freq: Status: Active Protocol: Document 03/14/25 11:30 [facility] (Rec: 03/14/25 12:06 [facility] [id number]) Hip Strength Hip Manual Muscle Testing Right Flexion (L2) 3+ Fair+ Extension (S1) 3+ Fair+ Abduction 4- Good- Adduction 4 Good External Rotation 4 Good Internal Rotation 5 Normal Left Flexion (L2) 3+ Fair+ Extension (S1) 3+ Fair+ Abduction 4 Good Adduction 4- Good- External Rotation 4- Good- Internal Rotation 5 Normal Knee Strength Knee Manual Muscle Testing Right Flexion (S2) 4+ Good+ Extension (L3) 4+ Good+ Left Flexion (S2) 4 Good Extension (L3) 4- Good- Ankle/Foot Strength Ankle and Foot Manual Muscle Testing Right Dorsiflexion (L4) 5 Normal Left Dorsiflexion (L4) 4+ Good+ PT-OP-Q Treatments Start: 02/06/25 07:36 Freq: Status: Active Protocol: Document 03/16/25 08:52 AB (Rec: 03/16/25 10:37 AB Laptop) Cardio Equipment Bicycle (Upright) Duration (Minutes) 5 Resistance 6 Seat Position 7 Gym Equipment Shuttle Recovery bilateral Details 62# Reps/Time X 15 x2 single leg Details 37 # Reps/Time X 15 Therapeutic Exercises Supine Exercises bridge Supine Exercise Name SL Side bilateral Reps/Minutes 25 Comments monitored for pain Sidelying Exercises clamshell Sidelying Exercise Name back to wall for L LE Side bilateral Resistance Level one band to HEP Reps/Minutes 15 ea Comments Pt ed rationale and VC for avoiding rolling back Sitting Exercises seated hip abd with band Sitting Exercise Name HEP Side bilateral Resistance Level 3 band Reps/Minutes One min X 1, 10 reps Standing Exercises step up Standing Exercise Name 1. fwd 2. lat Side bilateral Equipment Used 4 in step w/rail, and 2 inch book Reps/Minutes 10 each each LE Comments cues slow on decent sit to stand Standing Exercise Name HEP Equipment Used L3 band at knees from webbed chair Reps/Minutes X 5 Comments VC for position of knees and to keep tension on band Therapeutic Activity Therapeutic Activity floor recovery Comments floor recovery R LE up first in 1/2 kneel, light CGA to close supervision Gait Training Gait Activity 6 inch stairs with one rail Description 4 six inch steps with rails X 2 Comments verbal cues to activate gluteal muscles ascending and for increased hip hinge descending PT-OP-T Assessment and Plan Start: 02/06/25 07:36 Freq: Status: Active Protocol: Document 03/16/25 08:52 AB (Rec: 03/16/25 10:37 AB Laptop) Physical Therapy Assessment Rehab Potential Rehabilitation Potential Good Evaluation Complexity Number of Personal Factors/Comorbidities 3 or More Number of Body Systems Impaired 4 or More Clinical Presentation at Evaluation Evolving Impairments Impairments Activity Tolerance,Balance, Functional Activities, Functional Mobility,Gait,Pain, Posture,ROM,Soft Tissue Mobility,Strength,Transfers Goals strength Short Term Goal (STG) Pt will be indep w/HEP for strength and mobility 03/14-has started PT exercises STG Duration 03/06 Mechanical Test Technician Goal (LTG) Pt will score at least 4+/5 on all BLE MMT to show improved stability to allow greater ease w/daily activities LTG Duration 05/01 activities Short Term Goal (STG) Pt will be able to navigate stairs w/o inc pain 03/14-no change STG Duration 03/11 [facility] Goal (LTG) Pt will be able to get up/down from the ground 03/14-painful in shoulders d/t having pull herself up LTG Duration 05/01 balance Short Term Goal (STG) Pt will be able to do SLS for at least 4 sec B STG Duration achieved 03/14 [facility] Goal (LTG) Pt will be able to do SLS for at least 8 sec B LTG Duration 05/01 Assessment Summary Assessment Pt reports no ascending on second trial of activating glutes when ascending stairs. End of session ambulating out of session Karley reports having no pain. Physical Therapy Plan Frequency and Duration Frequency of Treatment 2x/wk for 5wk> 1x/wk Duration of treatment (weeks) 12 Plan of Care Start Date 02/06/25 Plan of Care End Date 05/01/25 Next Visit Focus/Plan Next Note Type Treatment Note Next Visit Plan get pt HEP for home as will complete PT 03/23; Progress bands for HEP/ revisit SLS and balance
--- NOTE | 2025-03-21 16:25 | PT.OTN ---
Addendum entered and electronically signed by Marilee Simpson, PT 03/28/25 08:14: PT direct supervision and direction to student PT Ree Mccoy throughout session Original Note: Current Diagnoses Unspecified internal derangement of left knee (03/21/25) Complex tear of medial meniscus, current injury, right knee, subsequent encounter (03/21/25) Physical Therapy Treatment Note PT-OP-A Visit Information Start: 02/06/25 07:36 Freq: Status: Active Protocol: Document 03/21/25 11:30 GG (Rec: 03/21/25 12:34 GG Laptop) Out-Patient Physical Therapy Visit Information Visit Information Visit Type Treatment Note Visit Start Time 09:52 Visit Stop Time 10:33 Visit Number 5 Number of CONTROL SUPERVISOR Visits 0 PT-OP-B Current Condition Start: 02/06/25 07:36 Freq: Status: Active Protocol: Document 02/06/25 13:02 [facility] (Rec: 02/06/25 13:47 [facility] [id number]) Current Condition History of Current Condition Onset Date years Current Complaints B knee pain History of Current Condition Pt reports she is has never done PT for knees and had a meniscus repair R 01/01/22. Had a cortizone shot about 4 months ago and that has been doing well after MRI showed another meniscus repair . Had total hysterectomy w/urethral mesh 07/04/20. Has had knee pain for several years that got worse. So far the shot is working well. Does have some back pain L>R side that is on/ off. With some voltarin recently, it has gotten better . Right now it is a 2/10 but when it comes, it is pretty debilitating. Does work with massage therapist as needed. Pt has noticed L knee is worse right now, but is up and down with specific activities like going up stairs or getting up off the floor. Also has L foot arthritis and vix vapor rub helps. Wal[place]. Has steps all around the house but does have hand rails. Prior Treatments and Tests IMPRESSION: 1. Oblique tear involving body and posterior horn junction of medial meniscus extending to inferior articulating surface. Oblique tear also seen involving anterior horn and body of lateral meniscus extending to superior articulating surface. 2. Cruciate ligaments are intact. Low-grade MCL sprain. 3. 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 4. Small joint effusion and popliteal cyst as above. No gross loose bodies. Treatment Goals Patient/Caregiver Goals Be able to get up from the floor a little easier, be able to get up the stairs easier, get knee stronger, improve balance PT-OP-C Subjective Start: 02/06/25 07:36 Freq: Status: Active Protocol: Document 03/21/25 11:30 GG (Rec: 03/21/25 12:34 GG Laptop) OP-PT Subjective Patient Comments Patient Comments Pt reports that she has been feeling good and that some of her home exercises have been feeling easy. PT-OP-D Balance Start: 02/06/25 07:36 Freq: Status: Active Protocol: Document 03/14/25 11:30 [facility] (Rec: 03/14/25 12:00 [id number] Balance Tests Single Limb Standing Single Limb- Right 9 sec Single Limb- Left 4 sec PT-OP-G Mobility & Gait Start: 02/06/25 07:36 Freq: Status: Active Protocol: Document 02/06/25 13:02 [facility] (Rec: 02/06/25 13:47 [facility] [id number]) OP Gait Assessment Comments Gait Comments dec push off , slight bent fwd , dec RLE stance time, add R>L LE PT-OP-J Posture/Palpation/Skin Start: 02/06/25 07:36 Freq: Status: Active Protocol: Document 02/06/25 13:02 [facility] (Rec: 02/06/25 13:47 [facility] [id number]) Posture Evaluation Comments Posture Comments R> L pronation, R>L femoral and tibial IR, R iliac crest higher, equal greater trocanters, significant inc kyphosis PT-OP-K Range of Motion Start: 02/06/25 07:36 Freq: Status: Active Protocol: Document 02/06/25 13:02 [facility] (Rec: 02/06/25 13:47 [facility] [id number]) Knee Goniometric Range of Motion Knee Right Flexion Active (degrees) 133 Extension Active (degrees) 6 Left Flexion Active (degrees) 132 Extension Active (degrees) 4 PT-OP-L Special Tests Start: 02/06/25 07:36 Freq: Status: Active Protocol: Document 02/06/25 13:02 [facility] (Rec: 02/06/25 13:47 [facility] [id number]) Special Tests Knee Special Tests SLR Test Results 55 L, 54 R Other Special Tests Special Tests Patellar reflex 2+; L 0; achilles B 0 PT-OP-M Strength Start: 02/06/25 07:36 Freq: Status: Active Protocol: Document 03/14/25 11:30 [facility] (Rec: 03/14/25 12:06 [facility] [id number]) Hip Strength Hip Manual Muscle Testing Right Flexion (L2) 3+ Fair+ Extension (S1) 3+ Fair+ Abduction 4- Good- Adduction 4 Good External Rotation 4 Good Internal Rotation 5 Normal Left Flexion (L2) 3+ Fair+ Extension (S1) 3+ Fair+ Abduction 4 Good Adduction 4- Good- External Rotation 4- Good- Internal Rotation 5 Normal Knee Strength Knee Manual Muscle Testing Right Flexion (S2) 4+ Good+ Extension (L3) 4+ Good+ Left Flexion (S2) 4 Good Extension (L3) 4- Good- Ankle/Foot Strength Ankle and Foot Manual Muscle Testing Right Dorsiflexion (L4) 5 Normal Left Dorsiflexion (L4) 4+ Good+ PT-OP-Q Treatments Start: 02/06/25 07:36 Freq: Status: Active Protocol: Document 03/21/25 11:30 GG (Rec: 03/21/25 12:34 GG Laptop) Gym Equipment Shuttle Recovery bilateral Details 75#, 100# Reps/Time x15 at each weight single leg Details 50# Reps/Time x20 Shuttle Rebound balance Reps/Duration 30 sec Comments tandem B Therapeutic Exercises Supine Exercises bridge Supine Exercise Name SL Side bilateral Reps/Minutes 20 Comments showed SL with straight leg for future progression Sidelying Exercises clamshell Side bilateral Resistance Level one band Reps/Minutes 3x15 Comments Pt ed rationale and VC/TC for avoiding rolling back (hand on back) Sitting Exercises seated hip abd with band Side bilateral Resistance Level 3 band Reps/Minutes One min X 1, 10 reps Standing Exercises step up Standing Exercise Name 1. fwd 2. lat Side bilateral Equipment Used 4 in step w/o rail Reps/Minutes 10 each each LE Comments cues slow on decent sit to stand Equipment Used L3 band at knees from webbed chair Reps/Minutes 3x5 Comments VC for position of knees and to keep tension on band Neuro Re-Education Treatment Balance Activities SLS Surface firm Reps/Duration 1 min B PT-OP-T Assessment and Plan Start: 02/06/25 07:36 Freq: Status: Active Protocol: Document 03/21/25 11:30 GG (Rec: 03/21/25 12:34 GG Laptop) Physical Therapy Assessment Assessment Summary Assessment Pt demonstrates good tolerance to progressed exercises in clinic and at home and is continuing to improve overall strength and function. Still required minor VC to reduce spine motion during clamshells , but know to use hand to provide a TC. Physical Therapy Plan Frequency and Duration Frequency of Treatment 2x/wk for 5wk> 1x/wk Duration of treatment (weeks) 12 Plan of Care Start Date 02/06/25 Plan of Care End Date 05/01/25 Next Visit Focus/Plan Next Note Type Discharge Summary Next Visit Plan f/u about progressed exercises on HEP; revisit SLS and balance and potentially add to HEP if they can be done at home safely
--- NOTE | 2025-04-26 09:59 | PT.OPDS ---
Current Diagnoses Unspecified internal derangement of left knee (03/21/25) Complex tear of medial meniscus, current injury, right knee, subsequent encounter (03/21/25) Visit Care Team Role Provider Type Jenise Hernandez MD Family Provider Non-Staff Primary Care Provider Specialty: Family Practice Address: [address], [place], [address] Email: Jensen Donald MD Attending Provider Non-Staff Referring Provider Specialty: Orthopedic Surgery [address], [place], [address] Email: Visit Number Visit Number 5 Discharge Summary PT-OP-B Current Condition Start: 02/06/25 07:36 Freq: Status: Active Protocol: Document 02/06/25 13:02 [facility] (Rec: 02/06/25 13:47 [facility] [id number]) Current Condition History of Current Condition Onset Date years Current Complaints B knee pain History of Current Pt reports she is has never done PT for knees and had a Condition meniscus repair R 01/01/22. Had a cortizone shot about 4 months ago and that has been doing well after MRI showed another meniscus repair . Had total hysterectomy w/urethral mesh 07/04/20. Has had knee pain for several years that got worse. So far the shot is working well. Does have some back pain L>R side that is on/off. With some voltarin recently, it has gotten better. Right now it is a 2/10 but when it comes, it is pretty debilitating. Does work with massage therapist as needed. Pt has noticed L knee is worse right now, but is up and down with specific activities like going up stairs or getting up off the floor. Also has L foot arthritis and vix vapor rub helps. Wal[place]. Has steps all around the house but does have hand rails. Prior Treatments and IMPRESSION: Tests 1. Oblique tear involving body and posterior horn junction of medial meniscus extending to inferior articulating surface. Oblique tear also seen involving anterior horn and body of lateral meniscus extending to superior articulating surface. 2. Cruciate ligaments are intact. Low-grade MCL sprain . 3. 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 4. Small joint effusion and popliteal cyst as above. No gross loose bodies. Treatment Goals Patient/Caregiver Be able to get up from the floor a little easier, be Goals able to get up the stairs easier, get knee stronger, improve balance PT-OP-C Subjective Start: 02/06/25 07:36 Freq: Status: Active Protocol: Document 03/21/25 11:30 GG (Rec: 03/21/25 12:34 GG Laptop) OP-PT Subjective Patient Comments Patient Comments Pt reports that she has been feeling good and that some of her home exercises have been feeling easy. PT-OP-D Balance Start: 02/06/25 07:36 Freq: Status: Active Protocol: Document 03/14/25 11:30 [facility] (Rec: 03/14/25 12:00 [id number] Balance Tests Single Limb Standing Single Limb- Right 9 sec Single Limb- Left 4 sec PT-OP-G Mobility & Gait Start: 02/06/25 07:36 Freq: Status: Active Protocol: Document 02/06/25 13:02 [facility] (Rec: 02/06/25 13:47 [facility] [id number]) OP Gait Assessment Comments Gait Comments dec push off , slight bent fwd, dec RLE stance time, add R>L LE PT-OP-J Posture/Palpation/Skin Start: 02/06/25 07:36 Freq: Status: Active Protocol: Document 02/06/25 13:02 [facility] (Rec: 02/06/25 13:47 [facility] [id number]) Posture Evaluation Comments Posture Comments R> L pronation, R>L femoral and tibial IR, R iliac crest higher, equal greater trocanters, significant inc kyphosis PT-OP-K Range of Motion Start: 02/06/25 07:36 Freq: Status: Active Protocol: Document 02/06/25 13:02 [facility] (Rec: 02/06/25 13:47 [facility] [id number]) Knee Goniometric Range of Motion Knee Right Flexion Active ( 133 degrees) Extension Active ( 6 degrees) Left Flexion Active ( 132 degrees) Extension Active ( 4 degrees) PT-OP-L Special Tests Start: 02/06/25 07:36 Freq: Status: Active Protocol: Document 02/06/25 13:02 [facility] (Rec: 02/06/25 13:47 [facility] [id number]) Special Tests Knee Special Tests SLR Test Results 55 L, 54 R Other Special Tests Special Tests Patellar reflex 2+; L 0; achilles B 0 PT-OP-M Strength Start: 02/06/25 07:36 Freq: Status: Active Protocol: Document 03/14/25 11:30 [facility] (Rec: 03/14/25 12:06 [facility] [id number]) Hip Strength Hip Manual Muscle Testing Right Flexion (L2) 3+ Fair+ Extension (S1) 3+ Fair+ Abduction 4- Good- Adduction 4 Good External Rotation 4 Good Internal Rotation 5 Normal Left Flexion (L2) 3+ Fair+ Extension (S1) 3+ Fair+ Abduction 4 Good Adduction 4- Good- External Rotation 4- Good- Internal Rotation 5 Normal Knee Strength Knee Manual Muscle Testing Right Flexion (S2) 4+ Good+ Extension (L3) 4+ Good+ Left Flexion (S2) 4 Good Extension (L3) 4- Good- Ankle/Foot Strength Ankle and Foot Manual Muscle Testing Right Dorsiflexion (L4) 5 Normal Left Dorsiflexion (L4) 4+ Good+ PT-OP-T Assessment and Plan Start: 02/06/25 07:36 Freq: Status: Active Protocol: Document 04/26/25 09:46 [facility] (Rec: 04/26/25 09:58 [id number] Physical Therapy Assessment Goals strength Short Term Goal (STG Pt will be indep w/HEP for strength and mobility ) 03/14-has started PT exercises STG Duration 03/06 Sock Ironer Goal (LTG) Pt will score at least 4+/5 on all BLE MMT to show improved stability to allow greater ease w/daily activities LTG Duration 05/01 activities Short Term Goal (STG Pt will be able to navigate stairs w/o inc pain ) 03/14-no change STG Duration 03/11 Sock Ironer Goal (LTG) Pt will be able to get up/down from the ground 03/14-painful in shoulders d/t having pull herself up LTG Duration 05/01 balance Short Term Goal (STG Pt will be able to do SLS for at least 4 sec B ) STG Duration achieved 03/14 Prison Goal (LTG) Pt will be able to do SLS for at least 8 sec B LTG Duration 05/01 Assessment Summary Assessment Pt made progress w/PT and was going to not be available to schedule PT for a while after last visit. Last visit cancelled d/t staff sick but session before, discussed DC after that visit d/t pt away for a while. Plan for pt to cont HEP when last seen and get a new referral if still needs further visits when returns. Physical Therapy Plan Discharge Physical Therapy Discharge Reasons No Longer Attending PT
== END 2025-04-27 10:04 | disposition home or self-care (01) ==
LOC: PHYS 09:45
PROVIDERS: Family Provider Family Medicine; PCP Family Medicine; Referring Provider Orthopaedic Surgery; Visit Provider Orthopaedic Surgery
DX: M23.92 Unspecified internal derangement of left knee (principal); S83.231D Complex tear of medial meniscus, current injury, right knee, subsequent encounter
CPT/HCPCS: 97110; 97162

== ENCOUNTER → 2025-05-15 12:50 | Outpatient (CLI) | payer MEDICARE, SELFPAY ==
--- NOTE | 2025-05-15 13:04 | DI.MG.S_ITS ---
Patient Name: MALIK BAIRD date: 1940 Sex: F Attending Physician: David Indications: Date: 05/15/2025 13:24 At the request of: KEYANA MANUEL Procedure: MM screening mammo BI MM screening mammo BI: 05/15/2025. BI-RADS: 1 CLINICAL: 84-year old female for bilateral screening mammogram. Tyrer-Cuzick lifetime risk of 2.3%. No personal or first-degree family history of breast cancer. Current reported family history of breast cancer: maternal aunt. The patient had a prior left breast biopsy. PRIOR EXAMS 05/13/2024, 05/07/2023, 05/01/2022, 04/29/2021. MAMMOGRAPHY TECHNIQUE: 2D and 3D (tomosynthesis) digital mammographic views obtained, with additional images as needed for full coverage. Current study was also evaluated with a Computer Aided Detection (CAD) system. DENSITY C. The breasts are heterogeneously dense, which may obscure small masses. MAMMOGRAPHY FINDINGS Bilateral: No suspicious mass, asymmetry, microcalcification, or other abnormality seen. No significant change from comparison. IMPRESSION: * No evidence of malignancy. RECOMMENDATIONS Bilateral * Annual screening mammography. Continued Report - Page 2 of 2 Patient Name: MALIK BAIRD date: 1940 Sex: F Attending Physician: David Indications: Date: 05/15/2025 13:24 At the request of: KEYANA MANUEL Procedure: MM screening mammo BI OVERALL ASSESSMENT CATEGORY BI-RADS-1: Negative. The [employer] recommends annual screening mammography beginning at age 40 for women with average risk of breast cancer. ELECTRONICALLY SIGNED: Marcela Aldridge M.D. on 05/15/2025 at 01:24:10 PM PT Interpreting Station ID: [id number]
== END ==
PROVIDERS: Family Provider Family Medicine; PCP Family Medicine; Referring Provider Family Medicine; Visit Provider Family Medicine
DX: Z12.31 Encounter for screening mammogram for malignant neoplasm of breast (principal); Z80.3 Family history of malignant neoplasm of breast; R92.333 Mammographic heterogeneous density, bilateral breasts
CPT/HCPCS: 77063; 77067

== ENCOUNTER 2025-10-30 16:55 | Emergency (ER) | payer MEDICARE, SELFPAY ==
[2025-10-30 17:17] VITALS: BP 168/74; PULSE 90; RESP 16; TEMP 36.8; O2SAT 96; BMI 25.7
--- NOTE | 2025-10-30 17:23 | DI.US.S_ITS ---
PROCEDURE: US PERIPH VENOUS LOW EXTREM RT INDICATIONS: Pain rt calf. 12 days post partial knee replacement. TECHNIQUE: Real-time imaging, as well as color and pulse Doppler interrogation, were performed of the lower extremity deep veins from the inguinal ligament to the popliteal fossa, with documentation of the visualized calf veins. COMPARISON: None. FINDINGS: The common femoral, femoral, popliteal, and the visualized calf veins are normally compressible, and free of intraluminal thrombus. Color and pulse Doppler demonstrate normal phasic intraluminal flow. There is normal augmentation response to distal compression maneuver. IMPRESSION: No findings of lower extremity deep venous thrombosis. Dictated by: Chavo Bajwa M.D. on 10/30/2025 at 17:59 Approved by: Chavo Bajwa M.D. on 10/30/2025 at 18:00
--- NOTE | 2025-10-30 18:19 | ED_ITS ---
HPI - Extremity Problem <Deborah Velasquez PA-C - Last Filed: 10/30/25 19:16> General Chief complaint: Extremity Problem,Nontraumatic Stated complaint: PC ref, knee repl 12 days ago, calf pain since Time Seen by Provider: 10/30/25 17:06 Source: patient Mode of arrival: Ambulatory History of Present Illness HPI Narrative: Ms. Childress is a pleasant 85-year-old female s/p partial right knee repair with Dr. Jensen Donald with [facility] 12 days ago who presents to the emergency department for increasing pain in her calf. Patient states she is having increasing pain in her calf which is constant but the pain in her knees actually getting better. She denies history of blood clots. She denies chest pain, shortness of breath or blood thinner use but she does take baby aspirin twice daily. She is seeing her ortho PA tomorrow. When she called her PCP office they advised she come to the ER for DVT rule out. Related Data Home Medications ?Medication ?Instructions ?Recorded ?Confirmed [CALCIUM] 500 mg PO QDAY ##0 12/16/11 03/19/25 [MUTIVITAMIN] QDAY ##0 12/16/11 03/19/25 VITAMIN D (Vitamin D3) 1,000 unit PO QDAY ##0 11/1603/19/25 ipratropium bromide 17 2 puff inhalation TID 03/19/25 mcg/actuation HFA aerosol inhaler rosuvastatin 10 mg tablet (Crestor) 10 mg PO DAILY 05/2003/19/25 albuterol sulfate 90 mcg/actuation 1 inh inhalation ON CE PRN 03/19/25 03/19/25 aerosol inhaler Previous Rx's ?Medication ?Instructions ?Recorded albuterol sulfate 90 mcg/actuation 2 puff inhalation Q 6H PRN 03/19/25 aerosol inhaler shortness of breath or wheez ing #6.7 grams benzonatate 200 mg capsule 200 mg PO BID PRN cough #28 caps 03/19/25 inhalational spacing device #1 ea 03/19/25 (Aerochamber MV spacer) Allergies Allergy/AdvReac Type Severity Reaction Status Date / Time adhesive (ADHESIVE) Allergy Intermediate VERY ITCHY Verified 10/30/25 17:17 Review of Systems <Deborah Velasquez PA-C - Last Filed: 10/30/25 19:16> Review of Systems ROS Unobtainable: All systems reviewed & are unremarkable except as noted in HPI and below Patient History <Deborah Velasquez PA-C - Last Filed: 10/30/25 19:16> Surgical History Status post breast lumpectomy Family History Father [place] (myocardial infarction) Sister B-cell lymphoma, unspecified B-cell lymphoma type, unspecified body region Social History Smoking Status: Never smoker Smoking Status: Never smoker alcohol intake frequency: holidays/special occasions only Exam <Deborah Velasquez PA-C - Last Filed: 10/30/25 19:16> Narrative Exam Narrative: GENERAL: 85 year old patient appears stated age. Well-developed patient, in no acute distress. HEAD: Atraumatic. Normocephalic. EYES: No scleral icterus. No injection or drainage. CARDIOVASCULAR: Regular rate RESPIRATORY: ?Nonlabored respirations. ?Speaking in clear, full sentences. EXTREMITIES: Right lower extremity compression stocking removed to expose leg. Anterior right knee surgical incisions are clean, dry, intact, covered with Steri-Strips. No drainage. Patient does have diffuse edema of the right lower extremity compared to left. Edema is nonpitting. She has strong DP and PT pulse and brisk cap refill in the toes. She does have a few spots of ecchymosis on the anterior right lower leg. Achilles tendon feels intact. Patient is able to plantar and dorsiflex. NEURO: AOx3. ?Clear speech. SKIN: No erythema or increased warmth of right lower extremity. Initial Vital Signs Initial Vital Signs: Vital Signs Temperature 98.2 F 10/30/25 17:17 Pulse Rate 90 10/30/25 17:17 Respiratory Rate 16 10/30/25 17:17 Blood Pressure 168/74 H 10/30/25 17:17 Pulse Oximetry 96 10/30/25 17:17 Oxygen Delivery Method Room Air 10/30/25 17:17 <Orly Salmon MD - Last Filed: 10/31/25 01:19> Initial Vital Signs Initial Vital Signs: Vital Signs Temperature 98.2 F 10/30/25 17:17 Pulse Rate 90 10/30/25 17:17 Respiratory Rate 16 10/30/25 17:17 Blood Pressure 168/74 H 10/30/25 17:17 Pulse Oximetry 96 10/30/25 17:17 Oxygen Delivery Method Room Air 10/30/25 17:17 Course <Deborah Velasquez PA-C - Last Filed: 10/30/25 19:16> Orders Ordered: ED Orders 10/30/25 17:23 US periph venous low extrem rt Stat Vital Signs Vital signs: Vital Signs - 8 hr 10/30/25 17:17 Temperature 98.2 F Pulse Rate 90 Respiratory Rate 16 Blood Pressure 168/74 H Pulse Oximetry 96 Oxygen Delivery Method Room Air <Orly Salmon MD - Last Filed: 10/31/25 01:19> Orders Ordered: ED Orders 10/30/25 17:23 US periph venous low extrem rt Stat Vital Signs Vital signs: Vital Signs - 8 hr 10/30/25 17:17 Temperature 98.2 F Pulse Rate 90 Respiratory Rate 16 Blood Pressure 168/74 H Pulse Oximetry 96 Oxygen Delivery Method Room Air MDM - Extremity (Nontraumatic) <Deborah Velasquez PA-C - Last Filed: 10/30/25 19:16> Medical Records Attestation: I reviewed the patient's medical records. Imaging Data RLE Venous US: Radiologist's Impression: PROCEDURE: US PERIPH VENOUS LOW EXTREM RT INDICATIONS: Pain rt calf. 12 days post partial knee replacement. TECHNIQUE: Real-time imaging, as well as color and pulse Doppler interrogation, were performed of the lower extremity deep veins from the inguinal ligament to the popliteal fossa, with documentation of the visualized calf veins. COMPARISON: None. FINDINGS: The common femoral, femoral, popliteal, and the visualized calf veins are normally compressible, and free of intraluminal thrombus. Color and pulse Doppler demonstrate normal phasic intraluminal flow. There is normal augmentation response to distal compression maneuver. IMPRESSION: No findings of lower extremity deep venous thrombosis. Dictated by: Chavo Bajwa M.D. on 10/30/2025 at 17:59 Approved by: Chavo Bajwa M.D. on 10/30/2025 at 18:00 [facility] Narrative Medical decision making narrative: 85-year-old female s/p partial right knee repair with Dr. Jensen Donald with [facility] 12 days ago who presents to the emergency department for increasing pain in her calf. Differential diagnosis includes but is not limited to right lower extremity DVT, postsurgical hematoma, etc. On exam the patient is in no acute distress, nontoxic appearing, vital signs appropriate with the exception of mildly elevated blood pressure. On exam her right knee surgical incisions look clean, dry, intact. She does have diffuse swelling of the right lower extremity that is nonpitting. No signs of cellulitis. She is neurovascularly intact. Right lower extremity venous ultrasound obtained reveals no signs of DVT. Discussed with the patient that her calf pain could be related to her recent surgery however recommended repeat ultrasound in 1 week if she has no improvement of symptoms. She is seeing her orthopedist tomorrow. Discussed strict ER return precautions. Patient verbalized understanding of all information agreeable with the plan. Rice therapy discussed. Stable for discharge home. Discharge Plan Departure Patient Disposition: Home Clinical Impression: Right calf pain, History of knee surgery Instructions: DI for Peripheral Edema-Unilateral Activity Restrictions/Additional Instructions: Dear Chenchokristyezno, Thank you for coming to the emergency department. Today you were evaluated for right calf pain and swelling following your knee surgery 12 days ago. We perf ormed a venous ultrasound which was negative for a blood clot. At this time I would like you to continue resting, elevating and icing the leg. Please follow up with your orthopedist tomorrow as scheduled. Please return to the emergency department immediately if you develop fevers, redness or concerns of infection or if you develop worsening calf pain or swelling, chest pain or shortness of breath. If your calf pain does not improve, I do recommend you have a repeat venous ultrasound in 1 week. Please follow up with your primary care doctor within the next 2-3 days for ER follow-up. (If you do not have a PCP you can call [phone]. ?to schedule an appointment with an [facility] Primary Care Provider) IF YOU DEVELOP ANY NEW OR WORSENING SYMPTOMS, RETURN TO THE ER! Please read the attached instructions, they highlight more specific treatments and interventions for you at home. Thank you for letting me participate in your care, Deborah C. Ron, PA-C Prescriptions: No Action rosuvastatin [Crestor] 10 mg tablet 10 mg PO DAILY ipratropium bromide 17 mcg/actuation HFA aerosol inhaler 2 puff INHALATION TID albuterol sulfate 90 mcg/actuation HFA aerosol inhaler 1 inh inhalation ONCE PRN albuterol sulfate 90 mcg/actuation HFA aerosol inhaler 2 puff inhalation Q6H PRN (Reason: shortness of breath or wheezing) Qty: 6.7 0RF (DME) Aerochamber MV Spacer See Rx Instructions .ROUTE .MEDSUPPLY Qty: 1 0RF Rx Instructions: As directed benzonatate 200 mg capsule 200 mg PO BID PRN (Reason: cough) Qty: 28 0RF [CALCIUM] 500 mg PO QDAY Qty: 0 [MUTIVITAMIN] QDAY Qty: 0 VITAMIN D (Vitamin D3) 1,000 unit PO QDAY Qty: 0 Referrals: Jenise Hernandez MD [Primary Care Provider, Family Practice] Stand Alone Forms: Patient Portal/API ED Sign-out <Orly Salmon MD - Last Filed: 10/31/25 01:19> Cosign ED Attending Cosignature Attestation: I was not personally involved in the patient's care, reviewed the CHRISTEN?s history, physical examination, diagnostic studies, and medical decision-making. I agree with the documented findings and plan of care as written, with the following additions and clarifications as noted above. Orly Salmon MD 10/31/2025 01:18
== END 2025-10-30 18:50 | disposition home or self-care (01) ==
PROVIDERS: Emergency Provider Physician Assistant; Family Provider Family Medicine; PCP Family Medicine
DX: M79.661 Pain in right lower leg (principal); Z96.651 Presence of right artificial knee joint
CPT/HCPCS: 93971; 99281; 99283